=== PATIENT | female | born 1950 | race Caucasian/White ===

== ENCOUNTER 2019-06-01 09:54 | Outpatient (RCR) | payer MEDICARE, MEDICAID, SELFPAY ==
[2019-06-02 06:43] LABS: Add Urine Microscopic? YES; Appearance Urine Clear (Clear); Bacteria Urine 4+ /hpf; Bilirubin Urine Negative (Negative); Blood Urine Negative (Negative); Calcium Oxalate Crystals Urine Present /hpf; Color Urine Yellow (Yellow); Glucose Urine UA Negative (Negative); Ketones Urine Negative (Negative); Leukocyte Esterase Ur 1+ LEU/UL (NEGATIVE); Mucus Urine Few /lpf; Nitrate Urine Positive (Negative); Protein Urine Negative (Negative); Specific Grav Ur 1.024 (1.001-1.035); Squamous Epithelial Cell Urine Moderate /hpf (Few); WBC Urine 31-50 /hpf (0-3)
[2019-06-02 07:56] LABS: Folic Acid 8.9 ng/mL (2.76->20)
== END 2019-08-30 23:59 | disposition home or self-care (01) ==
LOC: CAMBRIDGE 09:54
PROVIDERS: Visit Provider Nurse Practitioner Family
DX: I63.9 Cerebral infarction, unspecified (principal); I49.9 Cardiac arrhythmia, unspecified; I10 Essential (primary) hypertension; E87.6 Hypokalemia; E78.2 Mixed hyperlipidemia; H91.93 Unspecified hearing loss, bilateral; R73.9 Hyperglycemia, unspecified; F33.1 Major depressive disorder, recurrent, moderate
CPT/HCPCS: 36415; 81001; 82607; 82746; 87077; 87086; 87088; 87186

== ENCOUNTER 2020-11-09 14:41 | Emergency (ER) | payer MEDICARE, MEDICAID, SELFPAY ==
[2020-11-09 15:11] VITALS: BP 127/72; PULSE 65; RESP 18; TEMP 36.1; O2SAT 98
--- NOTE | 2020-11-09 15:14 | ECG_ITS ---
Measurements Intervals [place] Rate: 63 P: 42 [place]: 158 QRS: 13 QRSD: 80 T: 65 QT: 393 QTc: 403 Interpretive Statements SINUS RHYTHM POSSIBLE LEFT ATRIAL ENLARGEMENT LOW QRS VOLTAGE IN PRECORDIAL LEADS BORDERLINE T WAVE ABNORMALITY- ANTEROLATERAL LEADS BASELINE ARTIFACT- I, III, AVR, AVL, AVF BORDERLINE ECG Electronically Signed On 11-09-2020 15:51:09 CDT by Mannie Berman D.O.
[2020-11-09 15:30] LABS: Basophils Absolute Auto 0.1 K/mm3 (0.0-0.1); Basophils Percent Auto 0.5 % (0.2-1.2); Eosinophils Absolute Auto 0.4 K/mm3 (0-0.3); Eosinophils Percent Auto 2.9 % (0-4.4); Hematocrit 43.8 % (37.0-47.0); Hemoglobin 13.7 g/dL (12.0-15.0); Immature Granulocyte Absolute 0.08 K/mm3 (0.00-0.031); Immature Granulocyte Percent A 0.6 % (0-0.5); Lymphocytes Absolute Auto 1.52 K/mm3 (0.9-3.2); Lymphocytes Percent Auto 12.1 % (18.3-44.2); Mean Corpuscular HGB Conc 31.3 g/dl (32-36); Mean Corpuscular Hemoglobin 29.6 pg (26-34); Mean Corpuscular Volume 94.6 fl (80-100); Mean Platelet Volume 10.5 fl (7.4-10.4); Monocytes Absolute Auto 0.8 K/mm3 (0.1-0.6); Monocytes Percent Auto 6.5 % (2.6-8.5); Neutrophils Absolute Auto 9.8 K/mm3 (1.3-6.7); Neutrophils Percent Auto 77.4 % (45.5-73.1); Platelet Count Result 326 k/mm3 (150-375); Red Blood Count 4.63 M/mm3 (4.2-5.4); Red Cell Distribution Width 15.4 % (11.5-14.5); White Blood Count 12.6 K/mm3 (4.5-10.0)
[2020-11-09 15:40] LABS: Anion Gap 5 mmol/L (8-16); Blood Urea Nitrogen 16 mg/dL (7-17); Calcium 9.6 mg/dL (8.4-10.2); Carbon Dioxide 35 mmol/L (22-30); Chloride 101 mmol/L (98-107); Estimated Glomerular Filt Rate 55; Glucose 142 mg/dL (65-110); Potassium 3.7 mmol/L (3.4-5.0); Sodium 141 mmol/L (137-145)
[2020-11-09 15:42] LABS: INR 1.4; Prothrombin Time 16.5 Seconds (11.1-14.7)
[2020-11-09 15:43] LABS: Partial Thromboplastin Time 35.4 SECONDS (22.3-36.8)
[2020-11-09 15:51] LABS: NT Pro B Type Natriuretic Pept 138 pg/mL (5-100); Troponin I < 0.012 ng/mL (0.000-0.034)
--- NOTE | 2020-11-09 17:36 | ED.GENADULT ---
HPI - General Adult General Chief complaint: Extremity Problem,Nontraumatic Stated complaint: pedal edema Time Seen by Provider: 11/09/20 17:32 Related Data Home Medications Medication Instructions Recorded Confirmed amitriptyline 11/09/20 apixaban [Eliquis] mg 11/09/20 citalopram mg 11/09/20 duloxetine mg PO 11/09/20 empagliflozin [Jardiance] mg 11/09/20 hydrochlorothiazide 11/09/20 metoprolol tartrate 11/09/20 11/09/20 Allergies Allergy/AdvReac Type Severity Reaction Status Date / Time No Known Allergies Allergy Unverified 02/02/20 11:40 [facility] Social History Social History (System 02/02/20 @ 11:40 by Sherri Nobles) Gender identity (if verbalized by the patient): Female Course Vital Signs Vital signs: Vital Signs Temperature 36.1 C L 11/09/20 15:11 Pulse Rate 65 11/09/20 15:11 Respiratory Rate 18 11/09/20 15:11 Blood Pressure 127/72 11/09/20 15:11 Pulse Oximetry 98 11/09/20 15:11 Temperature 36.1 C L 11/09/20 15:11 Pulse Rate 65 11/09/20 15:11 Respiratory Rate 18 11/09/20 15:11 Blood Pressure 127/72 11/09/20 15:11 Pulse Oximetry 98 11/09/20 15:11 Medical Decision Making Vital Signs Vital Signs: Vital Signs Temperature 36.1 C L 11/09/20 15:11 Pulse Rate 65 11/09/20 15:11 Respiratory Rate 18 11/09/20 15:11 Blood Pressure 127/72 11/09/20 15:11 Pulse Oximetry 98 11/09/20 15:11 Temperature 36.1 C L 11/09/20 15:11 Pulse Rate 65 11/09/20 15:11 Respiratory Rate 18 11/09/20 15:11 Blood Pressure 127/72 11/09/20 15:11 Pulse Oximetry 98 11/09/20 15:11 Lab Data Result diagrams: 11/09/20 15:18 11/09/20 15:18 Labs: Lab Results 11/09/20 11/09/20 11/09/20 Range/Units 15:18 15:18 15:18 WBC 12.6 H (4.5-10.0) K/mm3 RBC 4.63 (4.2-5.4) M/mm3 Hgb 13.7 (12.0-15.0) g/dL Hct 43.8 (37.0-47.0) % MCV 94.6 (80-100) fl MCH 29.6 (26-34) pg MCHC 31.3 L (32-36) g/dl RDW 15.4 H (11.5-14.5) % Plt Count 326 (150-375) k/mm3 MPV 10.5 H (7.4-10.4) fl Immature Gran % (Auto) 0.6 H (0-0.5) % Neut % (Auto) 77.4 H (45.5-73.1) % Lymph % (Auto) 12.1 L (18.3-44.2) % [place] % (Auto) 6.5 (2.6-8.5) % Eos % (Auto) 2.9 (0-4.4) % Baso % (Auto) 0.5 (0.2-1.2) % Lymph # (Auto) 1.52 (0.9-3.2) K/mm3 [place] # (Auto) 0.8 H (0.1-0.6) K/mm3 Eos # (Auto) 0.4 H (0-0.3) K/mm3 Baso # (Auto) 0.1 (0.0-0.1) K/mm3 Abs Immat Gran (auto) 0.08 H (0.00-0.031) K/mm3 Absolute Neuts (auto) 9.8 H (1.3-6.7) K/mm3 Absolute Nucleated RBC 0.0 (0.0-0.012) K/mm3 Nucleated RBC % 0.0 (0.0-0.2) % PT 16.5 H (11.1-14.7) Seconds INR 1.4 APTT 35.4 (22.3-36.8) SECONDS Sodium 141 (137-145) mmol/L Potassium 3.7 (3.4-5.0) mmol/L Chloride 101 (98-107) mmol/L Carbon Dioxide 35 H (22-30) mmol/L Anion Gap 5 L (8-16) mmol/L BUN 16 (7-17) mg/dL Creatinine 1.00 (0.7-1.0) mg/dL Estim Creat Clear Calc Not Reportable Estimated GFR 55 L (59 - ) Glucose 142 H (65-110) mg/dL Calcium 9.6 (8.4-10.2) mg/dL Troponin I < 0.012 (0.000-0.034) ng/mL NT-Pro-B Natriuret Pep 138 H (5-100) pg/mL ABG Data ABG results: 11/09/20 11/09/20 11/09/20 15:18 15:18 15:18 WBC 12.6 H RBC 4.63 Hgb 13.7 Hct 43.8 MCV 94.6 MCH 29.6 MCHC 31.3 L RDW 15.4 H Plt Count 326 MPV 10.5 H Immature Gran % (Auto) 0.6 H Neut % (Auto) 77.4 H Lymph % (Auto) 12.1 L [place] % (Auto) 6.5 Eos % (Auto) 2.9 Baso % (Auto) 0.5 Lymph # (Auto) 1.52 [place] # (Auto) 0.8 H Eos # (Auto) 0.4 H Baso # (Auto) 0.1 Abs Immat Gran (auto) 0.08 H Absolute Neuts (auto) 9.8 H Absolute Nucleated RBC 0.0 Nucleated RBC % 0.0 PT 16.5 H INR 1.4 APTT 35.4 Sodium 141 Potassium 3.7 Chloride 101 Carbon Dioxide 35 H Anion Gap 5 L
[2020-11-09] MEDS: FUROSEMIDE 40 MG TABLET PO (19:18)
[2020-11-09 20:00] VITALS: BP 132/84; PULSE 89; RESP 16; O2SAT 96
== END 2020-11-09 20:01 | disposition home or self-care (01) ==
PROVIDERS: Emergency Medicine; Emergency Provider Emergency Medicine; PCP Nurse Practitioner Family
DX: R60.0 Localized edema (principal); R94.31 Abnormal electrocardiogram [ECG] [EKG]
CPT/HCPCS: 36415; 80048; 83880; 84484; 85025; 85610; 85730; 93005; 99284; A9270

== ENCOUNTER 2021-08-07 09:42 | Outpatient (CLI) | payer MEDICARE, MEDICAID, SELFPAY ==
[2021-08-07 10:21] LABS: Appearance Urine Clear (Clear); Bilirubin Urine Negative (Negative); Blood Urine Negative (Negative); Color Urine Yellow (Yellow); Glucose Urine UA 3+ mg/dL (Negative); Ketones Urine Negative (Negative); Leukocyte Esterase Ur Negative LEU/UL (Negative); Nitrate Urine Negative (Negative); Protein Urine Negative (Negative)
[2021-08-07 10:24] LABS: Bacteria Urine 3+ /hpf; Mucus Urine Rare /lpf; Squamous Epithelial Cell Urine Occasional /hpf (Few)
[2021-08-07 10:31] LABS: Add Urine Microscopic? YES
[2021-08-07 10:49] LABS: Alanine Aminotransferase 32 U/L (6-35); Alkaline Phosphatase 126 U/L (38-126); Anion Gap 10 mmol/L (8-16); Aspartate Amino Transferase 32 U/L (14-36); Bilirubin,Total 0.5 mg/dL (0.2-1.3); Blood Urea Nitrogen 30 mg/dL (7-17); Carbon Dioxide 31 mmol/L (22-30); Chloride 100 mmol/L (98-107); Estimated Glomerular Filt Rate 44; Glucose 131 mg/dL (65-110); Potassium 2.8 mmol/L (3.4-5.0); Sodium 141 mmol/L (137-145)
== END 2021-08-07 09:43 | disposition home or self-care (01) ==
LOC: ANHLAB 09:47
PROVIDERS: PCP Nurse Practitioner Family; Visit Provider Nurse Practitioner Family
DX: N39.0 Urinary tract infection, site not specified (principal); E87.6 Hypokalemia
CPT/HCPCS: 36415; 80053; 81001; 87077; 87086; 87186

== ENCOUNTER 2021-08-14 09:58 | Outpatient (CLI) | payer MEDICARE, MEDICAID, SELFPAY ==
[2021-08-14 10:48] LABS: Appearance Urine Slightly Cloudy (Clear); Bilirubin Urine Negative (Negative); Blood Urine Negative (Negative); Color Urine Yellow (Yellow); Glucose Urine UA 2+ mg/dL (Negative); Ketones Urine Negative (Negative); Leukocyte Esterase Ur Trace LEU/UL (Negative); Nitrate Urine Positive (Negative); Protein Urine Negative (Negative); pH Urine 6.5 (5.0-9.0)
[2021-08-14 10:59] LABS: Bacteria Urine 4+ /hpf; Budding Yeast Urine Present /hpf; Mucus Urine Rare /lpf; Squamous Epithelial Cell Urine Many /hpf (Few); WBC Urine 51-75 /hpf
[2021-08-14 11:00] LABS: Add Urine Microscopic? YES
[2021-08-14 11:28] LABS: Alanine Aminotransferase 31 U/L (6-35); Albumin Level 4.2 g/dL (3.5-5.1); Alkaline Phosphatase 109 U/L (38-126); Anion Gap 7 mmol/L (8-16); Aspartate Amino Transferase 37 U/L (14-36); Bilirubin,Total 0.8 mg/dL (0.2-1.3); Blood Urea Nitrogen 20 mg/dL (7-17); Calcium 9.2 mg/dL (8.4-10.2); Carbon Dioxide 32 mmol/L (22-30); Chloride 100 mmol/L (98-107); Estimated Glomerular Filt Rate 55; Glucose 138 mg/dL (65-110); Potassium 3.5 mmol/L (3.4-5.0); Sodium 139 mmol/L (137-145)
== END 2021-08-14 09:59 | disposition home or self-care (01) ==
LOC: ANHLAB 10:07
PROVIDERS: PCP Nurse Practitioner Family; Visit Provider Nurse Practitioner Family
DX: E87.6 Hypokalemia (principal); N39.0 Urinary tract infection, site not specified
CPT/HCPCS: 36415; 80053; 81001; 87077; 87086; 87186

== ENCOUNTER 2022-06-04 14:07 | Outpatient (CLI) | payer MEDICARE, MEDICAID, SELFPAY ==
--- NOTE | ~2022-06-04 | US_ITS ---
EXAMINATION: US art doppler w press LE BI DATE: 06/04/2022 15:26 INDICATION: Intermittent claudication TECHNIQUE: Segmental pressures and plethysmographic and Doppler waveforms of the brachial and lower e xtremity arteries were obtained. COMPARISON: None. FINDINGS: Right and left brachial artery pressures of 96 mm Hg and 87 mm Hg, respectively, are concordant (norm al difference <= 30 mmHg). The left high thigh pressure index is 1.59 (normal > 1.2). The right high thigh pressure index was unable to be obtained due to inability to occlude the vessels at the high ri ght thigh. Intermittent cardiac arrhythmia is present. The right ankle-brachial index (MONIKA) is 1.23 (normal >= 0.9-1). The right great toe-brachial index (T BI) is 0.72 (normal >= 0.6-0.8). The right lower extremity segmental pressure gradients are normal (n ormal gradients <= 20-30 mmHg between adjacent levels on the same leg or the same levels on the two l egs). Arterial waveforms are triphasic at the right common femoral and superficial femoral arteries a nd biphasic in the right popliteal, posterior tibial and dorsalis pedis arteries with brisk systolic upstrokes throughout. The left MONIKA is 1.20 based only upon the pressure in the left posterior tibial artery with no discern ible pulse at the left dorsalis pedis artery. The left TBI is 1.47. The left lower extremity segmenta l pressure gradients are also mildly increased between the left [id number] popliteal artery and t he left posterior tibial artery. Arterial waveforms are triphasic at the left common femoral and supe rficial femoral arteries and biphasic in the left popliteal and posterior tibial arteries with persis tent upstrokes throughout. IMPRESSION: 1. No discernible flow at the left dorsalis pedis artery which may be occluded. Otherwise no signific ant arterial occlusive disease to either lower limb with normal MONIKA's and TBI's bilaterally. 2. Cardiac arrhythmia. Correlate with EKG. Reviewed, dictated and finalized at location A. [facility] IMPRESSION: 1. No discernible flow at the left dorsalis pedis artery which may be occluded. Otherwise no significant arterial occlusive disease to either lower limb with normal MONIKA's and TBI's bilaterally. 2. Cardiac arrhythmia. Correlate with EKG.
== END 2022-06-04 14:08 | disposition home or self-care (01) ==
PROVIDERS: PCP Nurse Practitioner Family; Visit Provider Registered Nurse
DX: I73.9 Peripheral vascular disease, unspecified (principal)
CPT/HCPCS: 93923

== ENCOUNTER 2022-07-27 18:47 | Emergency (ER) | payer MEDICARE, MEDICAID, SELFPAY ==
[2022-07-27 18:51] VITALS: BP 118/65; PULSE 69; RESP 14; TEMP 36.6; O2SAT 96
--- NOTE | 2022-07-27 19:37 | ED.SKABFB ---
HPI - Skin/Abscess/Foreign Bdy General Chief complaint: Skin/Abscess/Foreign Body Stated complaint: rash Time Seen by Provider: 07/27/22 19:10 History of Present Illness HPI narrative: Patient is a 71-year-old female with a history of diabetes, hypertension presenting with a rash. Patient states that she has had a painful rash underneath both of her breasts and underneath her abdominal pannus. States that she resides at [facility] and her nurse has taken away all of her creams and powders. States that the rash has continued and is now very painful. She is asking for antifungal cream. She denies any other complaints or lesions. No systemic symptoms. Related Data Home Medications Medication Instructions Recorded Confirmed amitriptyline 10 mg tablet 11/09/20 apixaban 5 mg tablet (Eliquis) mg 11/09/20 citalopram 40 mg tablet mg 11/09/20 duloxetine 20 mg capsule,delayed mg PO 11/09/20 release empagliflozin 25 mg tablet mg 11/09/20 (Jardiance) hydrochlorothiazide 25 mg tablet 11/09/20 metoprolol tartrate 50 mg tablet 11/09/20 11/09/20 Allergies Allergy/AdvReac Type Severity Reaction Status Date / Time No Known Allergies Allergy Unverified 02/02/20 11:40 Review of Systems Review of Systems: All systems reviewed & are unremarkable except as noted in HPI and below PMFSH Social History Social History Gender identity (if verbalized by the patient): Female Exam Narrative: GENERAL: Well-appearing, well-nourished, and in no acute distress. HEAD: Normocephalic, atraumatic. EYES: PERRLA and EOMI. ENT: Nares clear, no rhinorrhea or epistaxis. Mucous membranes moist. NECK: Supple. CHEST: No respiratory distress. HEART: Regular rate and rhythm ABDOMEN: nondistended, soft EXTREMITIES: Normal range of motion. No edema. SKIN: Warm, dry. erythematous moist rash under bilateral breasts and under abdominal pannus, c/w ivette intertrigo NEURO: No focal deficits. Alert and oriented x3. PSYCH: Normal mood and affect. Course Vital Signs Vital signs: Vital Signs Temperature 97.8 F 07/27/22 18:51 Pulse Rate 69 07/27/22 18:51 Respiratory Rate 14 07/27/22 18:51 Blood Pressure 118/65 07/27/22 18:51 Pulse Oximetry 96 07/27/22 18:51 Oxygen Delivery Room Air 07/27/22 18:51 Temperature 97.8 F 07/27/22 18:51 Pulse Rate 69 07/27/22 18:51 Respiratory Rate 14 07/27/22 18:51 Blood Pressure 118/65 07/27/22 18:51 Pulse Oximetry 96 07/27/22 18:51 Oxygen Delivery Room Air 07/27/22 18:51 MDM - Skin/Abscess/Foreign Bdy MDM Narrative Medical decision making narrative: Patient is a 71-year-old female presenting with intertriginous rashes. Vitals within normal limits. Patient is well-appearing and in no acute distress. Exam is remarkable for the above. Consistent with Ivette intertrigo. We will start her on antifungal cream. Advise close PCP follow-up. Appropriate return precautions given. Patient voiced understanding and is agreeable with plan. Discharged in stable condition. Differential Diagnosis Differential diagnosis: Likely urticaria, cellulitis, eczema, contact dermatitis and other (ivette intertrigo) Critical Care Time Critical Care Time Critical Care Time: No Discharge Plan Discharge Clinical Impression: Candidal intertrigo Patient Disposition: NH Residential/Asst Living Condition: Stable Instructions: Antibiotic Form, Skin Yeast Infection (ED) Additional Instructions: Please apply the antifungal cream twice daily for two weeks. Please follow-up closely with your PCP. If your symptoms worsen, you develop fevers, vomiting, or other concerning symptoms arise, please return to the ER. Prescriptions: New ketoconazole 2 % cream 1 applic topical BID Qty: 60 0RF Rx Instructions: apply twice daily to affected areas for 2 weeks No Action citalopram 40 mg tablet
== END 2022-07-27 20:10 ==
PROVIDERS: Emergency Provider Emergency Medicine; PCP Nurse Practitioner Family
DX: L30.4 Erythema intertrigo (principal); B37.2 Candidiasis of skin and nail; E11.9 Type 2 diabetes mellitus without complications; I10 Essential (primary) hypertension; Z79.84 Long term (current) use of oral hypoglycemic drugs; Z79.01 Long term (current) use of anticoagulants
CPT/HCPCS: 99283

== ENCOUNTER 2023-11-09 16:45 | Emergency (ER) | payer MEDICARE, MEDICAID, SELFPAY ==
[2023-11-09 16:46] VITALS: BP 127/80; PULSE 71; RESP 16; TEMP 36.4; O2SAT 99
--- NOTE | 2023-11-09 17:31 | PC.NURSE ---
This RN was approached by another pt in the waiting room stating this pt was in the bathroom with blood running down her leg. When this RN approached the bathroom, I found the pt standing with a quater sized skin tear to the L skin. Bleeding was controlled upon this RN arriving to the bathroom. Pt had some dried blood running down to her ankle. This RN wheeled pt into triage and cleaned the wound with sterile water and gauze. This RN then placed a bandaid over the skin tear.
[2023-11-09] MEDS: ACETAMINOPHEN 500 MG TABLET 1000 MG PO (20:00)
[2023-11-09 20:03] VITALS: BP 128/70; PULSE 62; RESP 17; O2SAT 97
--- NOTE | 2023-11-10 01:34 | ED.UPPEXIN ---
HPI - Extremity Injury (Upper) General Chief Complaint: Extremity Injury, Upper Stated Complaint: arm swelling Time Seen by Provider: 11/09/23 19:20 History of Present Illness HPI narrative: The patient is on a blood thinner, she noticed 2-3 days ago that she had a large bruise to her left arm. Cannot recall any recent injury, she is able to move her arm without issues, she has been using ice on her arm. Denies any pain. Related Data Home Medications Medication Instructions Recorded Confirmed amitriptyline 10 mg tablet 11/09/20 apixaban 5 mg tablet (Eliquis) mg 11/09/20 citalopram 40 mg tablet mg 11/09/20 duloxetine 20 mg capsule,delayed mg PO 11/09/20 release empagliflozin 25 mg tablet mg 11/09/20 (Jardiance) hydrochlorothiazide 25 mg tablet 11/09/20 metoprolol tartrate 50 mg tablet 11/09/20 11/09/20 Allergies Allergy/AdvReac Type Severity Reaction Status Date / Time No Known Allergies Allergy Unverified 02/02/20 11:40 Review of Systems Review of Systems: All systems reviewed & are unremarkable except as noted in HPI and below PMFSH Social History Social History Gender identity (if verbalized by the patient): Female Exam Narrative: EXAMINATION OF ORGAN SYSTEMS/BODY AREAS: Constitutional: Vital signs per nursing GENERAL:[No acute distress, non-toxic appearing.] HEAD: Normal with no signs of head trauma. EYES: EOMI, conjunctiva normal ENT: Hearing grossly intact LUNGS: Nonlabored breathing. HEART: [Regular rate and rhythm] ABD: [Soft], [nontender to palpation] EXT: Normal range of motion. Extensive bruising around the left humerus in the shape and size of a blood pressure cuff SKIN: Bruising as above NEURO: [Alert and oriented x 3. No gross focal sensory or strength deficits.] PSYCH: Normal affect Course Vital Signs Vital signs: Vital Signs Temperature 97.6 F 11/09/23 16:46 Pulse Rate 71 11/09/23 16:46 Respiratory Rate 16 11/09/23 16:46 Blood Pressure 127/80 11/09/23 16:46 Pulse Oximetry 99 11/09/23 16:46 Temperature 97.6 F 11/09/23 16:46 Pulse Rate 62 11/09/23 20:03 Respiratory Rate 17 11/09/23 20:03 Blood Pressure 128/70 11/09/23 20:03 Pulse Oximetry 97 11/09/23 20:03 MDM - Extremity Injury (Upper) MDM Narrative Medical decision making narrative: Patient presents here with 2-3 days of atraumatic bruising to her left upper arm, she has normal range of motion, she is already on a blood thinner so have very low concern for DVT, there is no significant hematoma collection, the bruise appears suspiciously like he may have been caused by a blood pressure cuff based on the size and shape and position of it, patient thinks that it may have gone warmer than usual over last day so I will tentatively give antibiotics for prophylaxis to prevent he infection of hematoma, and have her follow up with primary care doctor. Return precautions provided. Patient agreeable to this plan. Discharge Plan Discharge Clinical Impression: Hematoma Patient Disposition: Home, Self-Care Condition: Stable Instructions: Antibiotic Form, Hematoma (ED) Additional Instructions: Please follow up with your doctor in the next 2-3 days. Use ice on it the next few days. Try to avoid taking blood pressures on that arm. You can always return to the ER for any further issues. Prescriptions: New cephalexin 500 mg capsule 500 mg PO Q12H 5 Days Qty: 10 0RF No Action ketoconazole 2 % cream 1 applic topical BID Qty: 60 0RF Rx Instructions: apply twice daily to affected areas for 2 weeks citalopram 40 mg tablet amitriptyline 10 mg tablet metoprolol tartrate 50 mg tablet hydrochlorothiazide 25 mg tablet duloxetine 20 mg capsule,delayed release(DR/EC) PO Eliquis 5 mg tablet Jardiance 25 mg tablet
== END 2023-11-09 21:06 | disposition home or self-care (01) ==
PROVIDERS: Emergency Provider Emergency Medicine; PCP Nurse Practitioner Family
DX: M79.81 Nontraumatic hematoma of soft tissue (principal); Z79.01 Long term (current) use of anticoagulants; Z79.84 Long term (current) use of oral hypoglycemic drugs; Z79.899 Other long term (current) drug therapy
CPT/HCPCS: 99283; A9270

== ENCOUNTER 2025-01-15 18:18 | Inpatient (IN) | payer MEDICARE, MEDICAID, SELFPAY ==
[2025-01-15] VITALS (31 sets, daily range): BP systolic 82–113; BP diastolic 57–82; PULSE 96–146; RESP 15–25; TEMP 36.4; O2SAT 91–98
--- NOTE | ~2025-01-15 | CT_ITS ---
EXAMINATION: CT brain wo con DATE: 01/15/2025 20:10 INDICATION: Fall. Weakness. TECHNIQUE: Computed tomography (CT) of the head was performed without intravenous contrast. The mA was adjusted according to patient size. Iterative reconstruction technique was employed. The dose-length product was 605.33 mGy-cm. COMPARISON: Head CT 02/24/2018 FINDINGS: There is an old infarct in right cerebellum. There is an old infarct involving left temporal parietal region and left insula. There is an old infarct involving right frontal parietal region and the right basal ganglia and right insula. There are scattered areas of low attenuation in the cerebral white matter. There is no intracranial hemorrhage, acute infarction, or abnormal intracranial mass lesion. There is ex vacuo dilatation of right lateral ventricle. The paranasal sinuses are clear. There are likely changes of ocular lens replacement surgeries. The mastoid air cells are normal. IMPRESSION: 1. Multiple old infarcts in the brain. 2. Worsened extensive nonspecific cerebral white matter disease, which likely represents chronic small vessel ischemic disease. Reviewed, dictated and finalized at location E. IMPRESSION: 1. Multiple old infarcts in the brain. 2. Worsened extensive nonspecific cerebral white matter disease, which likely r epresents chronic small vessel ischemic disease.
--- NOTE | ~2025-01-15 | XR_ITS ---
Examination: XR pelvis 1-2V Clinical History: fall Comparison: None Technique: AP pelvis Findings/impression: 1. No pelvic fracture identified. However given patient age, osteopenia, and overlying soft tissue artifact, consider a low threshold for cross-sectional imaging if clinical suspicion persists. Reviewed, dictated and finalized at location R.
--- NOTE | ~2025-01-15 | CT_ITS ---
EXAMINATION: CT cervical spine wo con DATE: 01/15/2025 20:10 INDICATION: Fall. TECHNIQUE: Computed tomography (CT) of the cervical spine was performed without intravenous contrast. Automated exposure control and iterative reconstruction technique were employed. The dose-length product was 366.89 mGy-cm. COMPARISON: None FINDINGS: There is an 8 mm nodule in right thyroid lobe, likely not clinically significant. There is 5 degrees levocurvature of cervical spine. Vertebral body heights are normal. There is mildly decreased disc height at C6-C7. There is multilevel facet joint osteoarthritis, severe bilaterally at T1. There is multilevel mild neural foraminal stenosis. There is mild central canal stenosis at C2-C3, C3-C4, C4-C5, C5-C6, and C6-C7. IMPRESSION: 1. No fracture. 2. Mild cervical spondylosis. Reviewed, dictated and finalized at location E.
--- NOTE | ~2025-01-15 | XR_ITS ---
EXAMINATION: XR shoulder LT min 2V, 01/15/2025 18:55 CDT HISTORY: Fall COMPARISON: No comparisons available. Findings: No acute fracture or malalignment. Severe degenerative changes Soft tissues unremarkable. Impression: No acute fracture or malalignment. Reviewed, dictated and finalized at location P. Impression: No acute fracture or malalignment.
--- NOTE | ~2025-01-15 | XR_ITS ---
EXAMINATION: XR humerus LT, 01/15/2025 18:55 CDT HISTORY: Fall COMPARISON: No comparisons available. Findings: No acute fracture or malalignment. Severe degenerative changes Soft tissues unremarkable. Impression: No acute fracture or malalignment. Reviewed, dictated and finalized at location P. Impression: No acute fracture or malalignment.
--- NOTE | ~2025-01-15 | XR_ITS ---
Examination: XR chest 2V Clinical History: weakness Comparison: None Technique: PA and Lateral Findings: Cardiomediastinal silhouette normal size and configuration. Lungs clear. No acute bony abnormality. Osteopenia. IMPRESSION: 1. No acute cardiopulmonary findings. Reviewed, dictated and finalized at location R.
--- NOTE | 2025-01-15 19:24 | ECG_ITS ---
Test Date: 2025-01-15 19:37:26 Measurements Intervals [place] Rate: 123 P: 0 [place]: 0 QRS: 21 QRSD: 80 T: 105 QT: 334 QTc: 479 Interpretive Statements ATRIAL FIBRILLATION WITH RAPID VENTRICULAR RESPONSE NONSPECIFIC ST & T-WAVE ABNORMALITY- DIFFUSE LEADS BASELINE ARTIFACT- I, II, III, AVR, AVL ,AVF, V1-V6 ABNORMAL ECG No previous ECG available for comparison Electronically Signed On 01-16-2025 08:27:52 CDT by Mannie Berman D.O.
--- NOTE | 2025-01-15 19:36 | ED.UPPEXIN ---
HPI - Extremity Injury (Upper) General Chief Complaint: Extremity Injury, Upper <Kayla Saba PA-C - Last Filed: 01/16/25 00:27> Stated Complaint: weakness, left shoulder pain after fall on Wed <Kayla Saba PA-C - Last Filed: 01/16/25 00:27> Time Seen by Provider: 01/15/25 19:24 <Kayla Saba PA-C - Last Filed: 01/16/25 00:27> Source: patient and EMS <Kayla Saba PA-C - Last Filed: 01/16/25 00:27> Mode of arrival: EMS <Kayla Saba PA-C - Last Filed: 01/16/25 00:27> Limitations: other (poor historian) <Kayla Saba PA-C - Last Filed: 01/16/25 00:27> History of Present Illness HPI narrative: This is a 74-year-old female that presents emergency department for left shoulder pain. Reports she tripped and fall couple of days prior. Lying left shoulder. Reports decreased range of motion and pain in the shoulder. Also reports feeling generally weak. Denies chest pain, shortness of breath. <Kayla Saba PA-C - Last Filed: 01/16/25 00:27> Related Data Home Medications: Home Medications ?Medication ?Instructions ?Recorded ?Confirmed ?Last Taken ?Type amitriptyline 10 mg tablet 25 mg PO BID 11/09/20 01/16/25 Unknown History apixaban 5 mg tablet (Eliquis) 5 mg PO DAILY 11/09/20 01/16/25 Unknown History citalopram 40 mg tablet 40 mg PO DAILY 11/09/20 01/16/25 Unknown History duloxetine 20 mg capsule,delayed 20 mg PO DAILY 11/09/20 01/16/25 Unknown History release empagliflozin 25 mg tablet 25 mg PO DAILY 11/09/20 01/16/25 Unknown History (Jardiance) hydrochlorothiazide 25 mg tablet 50 mg PO DAILY 11/09/20 01/16/25 Unknown History metoprolol tartrate 50 mg tablet 50 mg PO DAILY 11/09/20 01/16/25 Unknown History atorvastatin 40 mg tablet 40 mg PO DAILY 01/16/25 01/16/25 Unknown History ibuprofen 600 mg tablet 600 mg PO Q8H PRN fever or pain 01/16/25 01/16/25 Unknown History <Kayla Saba PA-C - Last Filed: 01/16/25 00:27> Allergies/Adverse Reactions: Allergies Allergy/AdvReac Type Severity Reaction Status Date / Time No Known Allergies Allergy Verified 01/16/25 01:57 <Kayla Saba PA-C - Last Filed: 01/16/25 00:27> Review of Systems Review of Systems: All systems reviewed & are unremarkable except as noted in HPI and below <Kayla Saba PA-C - Last Filed: 01/16/25 00:27> PMFSH Past Medical History Medical History: Medical History (Updated 01/16/25 @ 00:40 by Vanessa Berrios MD) Hypertension History of diabetes mellitus <DESIREE Terry Last Filed: 01/16/25 00:27> Family History Family History: Family History (Updated 01/16/25 @ 01:42 by Lorie Dorsey RN) Father Acute myocardial infarction <DESIREE Terry Last Filed: 01/16/25 00:27> Social History Social History: Social History Years smoked: 50 Smoking status: Current every day smoker Tobacco type: cigarettes Second hand tobacco smoke exposure: Yes Alcohol intake: never Substance use: never Lack of Transportation: No Lack of Food: Never True Current Housing: I Have Housing Concerned About Future Housing: No Difficulty Paying Gas/Electric Bills: No Difficulty Paying for Meds: No Currently Unemployed: No Education: High School Diploma/GED Difficulty w/ Childcare or Family Care: No Gender identity (if verbalized by the patient): Female Spiritual care concerns: No <DESIREE Terry Last Filed: 01/16/25 00:27> Exam Narrative: GENERAL: Well-appearing, well-nourished, and in no acute distress. HEAD: Normocephalic, atraumatic. EYES: PERRLA and EOMI. ENT: Nares clear, no rhinorrhea or epistaxis. Mucous membranes moist. Oropharynx without tonsillar hypertrophy exudate or other lesions. Bilateral TMs pearly melara non-bulging NECK: Supple. No adenopathy or masses. CHEST: Clear to auscultation. No respiratory distress. No wheezes rales or rhonchi HEART: Irregularly irregular. No murmur heard. Normal peripheral pulses. ABDOMEN: Soft, nontender, nondistended, normal active bowel sounds. EXTREMITIES: Normal range of motion. No edema or obvious deformity. SKIN: Warm, dry, no rash. NEURO: No focal deficits. Alert and oriented x3. CN II-XII grossly intact PSYCH: Normal mood and affect <Kayla Saba PA-C - Last Filed: 01/16/25 00:27> Course CLEARING INSPECTOR/PA Physician Supervision I did review the chart agree with the management <Parker Donato MD - Last Filed: 01/16/25 03:18> Consultations Consultation #1: Spoke with Dr. Lopes. Recommends starting Amiodarone <Kayla Saba PA-C - Last Filed: 01/16/25 00:27> Date: 01/15/25 <Kayla Saba PA-C - Last Filed: 01/16/25 00:27> Consultation #2: Spoke with hospitalist about patient and workup who accepts admission <Kayla Saba PA-C - Last Filed: 01/16/25 00:27> Date: 01/15/25 <Kayla Saba PA-C - Last Filed: 01/16/25 00:27> Vital Signs Vital signs: Vital Signs Temperature 36.4 C 01/15/25 18:27 Pulse Rate 106 H 01/15/25 18:27 Respiratory Rate 18 01/15/25 18:27 Blood Pressure 85/69 L 01/15/25 18:27 Pulse Oximetry 98 01/15/25 18:27 Oxygen Delivery Room Air 01/15/25 18:27 Temperature 36.4 C L 01/16/25 02:03 Pulse Rate 98 01/16/25 02:03 Respiratory Rate 25 H 01/16/25 02:03 Blood Pressure 110/70 01/16/25 02:03 Pulse Oximetry 98 01/16/25 02:03 Oxygen Delivery Room Air 01/15/25 18:27 <Kayla Saba PA-C - Last Filed: 01/16/25 00:27> Vital Signs Temperature 36.4 C 01/15/25 18:27 Pulse Rate 106 H 01/15/25 18:27 Respiratory Rate 18 01/15/25 18:27 Blood Pressure 85/69 L 01/15/25 18:27 Pulse Oximetry 98 01/15/25 18:27 Oxygen Delivery Room Air 01/15/25 18:27 Temperature 36.4 C L 01/16/25 02:03 Pulse Rate 98 01/16/25 02:03 Respiratory Rate 25 H 01/16/25 02:03 Blood Pressure 110/70 01/16/25 02:03 Pulse Oximetry 98 01/16/25 02:03 Oxygen Delivery Room Air 01/15/25 18:27 <Parker Donato MD - Last Filed: 01/16/25 03:18> MDM - Extremity Injury (Upper) MDM Narrative Medical decision making narrative: Patient presents to the emergency department after a fall a couple of days prior to arrival with left shoulder pain. Also reporting generalized weakness. Patient noted to be in atrial fibrillation with RVR. Blood pressure soft, but responsive to IV fluids. Given IV and oral metoprolol with some improvement. Rates now in the 110s to 120s. Patient is afebrile. CBC with leukocytosis to 14.1. Kidney function around baseline. Mildly hypokalemic, potassium was replaced. Urine with possible evidence of infection. This was sent for culture. Patient given a dose of Rocephin. CT brain, cervical spine without acute findings. Left humerus and shoulder x-rays without acute osseous abnormalities. Chest x-ray without acute cardiopulmonary abnormality. Patient will be admitted for further management <Kayla Saba PA-C - Last Filed: 01/16/25 00:27> Differential Diagnosis Differential diagnosis: Likely dislocation of shoulder, fracture of humerus and other (UTI, dehydration, electrolyte derangement, kidney injury, pneumonia, atrial fibrillation, atrial flutter) <Kayla Saba PA-C - Last Filed: 01/16/25 00:27> Lab Data Attestation: I reviewed the patient's lab results. <Kayla Saba PA-C - Last Filed: 01/16/25 00:27> Result diagrams: 01/15/25 19:44 01/15/25 20:23 <Kayla Saba PA-C - Last Filed: 01/16/25 00:27> Labs: Lab Results 01/15/25 01/15/25 01/15/25 Range/Units 19:44 20:17 20:23 WBC 14.1 H (4.5-10.0) K/mm3 RBC 5.29 (4.2-5.4) M/mm3 Hgb 13.7 (12.0-15.0) g/dL Hct 44.0 (37.0-47.0) % MCV 83.2 (80-100) fl MCH 25.9 L (26-34) pg MCHC 31.1 L (32-36) g/dl RDW 19.1 H (11.5-14.5) % Plt Count 458 H (150-375) k/mm3 MPV 11.0 H (7.4-10.4) fl Immature Gran % (Auto) 0.4 (0-0.5) % Neut % (Auto) 76.2 H (45.5-73.1) % Lymph % (Auto) 13.6 L (18.3-44.2) % [place] % (Auto) 8.0 (2.6-8.5) % Eos % (Auto) 1.4 (0-4.4) % Baso % (Auto) 0.4 (0.2-1.2) % Lymph # (Auto) 1.92 (0.9-3.2) K/mm3 [place] # (Auto) 1.1 H (0.1-0.6) K/mm3 Eos # (Auto) 0.2 (0-0.3) K/mm3 Baso # (Auto) 0.1 (0.0-0.1) K/mm3 Abs Immat Gran (auto) 0.05 H (0.00-0.031) K/mm3 Absolute Neuts (auto) 10.7 H (1.3-6.7) K/mm3 Absolute Nucleated RBC 0.000 (0.0-0.012) K/mm3 Nucleated RBC % 0.0 (0.0-0.2) % PT Cancelled 18.3 H INR Cancelled 1.6 APTT Cancelled 34.9 D-Dimer Cancelled < 0.27 Sodium 136 L (137-145) mmol/L Potassium 2.9 L (3.4-5.0) mmol/L Chloride 100 (98-107) mmol/L Carbon Dioxide 25 (22-30) mmol/L Anion Gap 11 (4-12) mmol/L BUN 46 H D (7-17) mg/dL Creatinine 1.31 H (0.7-1.0) mg/dL Estim Creat Clear Calc Not Reportable Estimated GFR 40 L (59 - ) Glucose 104 (65-110) mg/dL Calcium 9.3 (8.4-10.2) mg/dL Magnesium 2.5 H (1.6-2.3) mg/dL Total Bilirubin 0.6 (0.2-1.3) mg/dL AST 36 (14-36) U/L ALT 38 H (6-35) U/L Alkaline Phosphatase 106 (38-126) U/L NT-Pro-B Natriuret Pep 2900 H (19.9-100) pg/mL Total Protein 8.3 H (6.3-8.2) g/dL Albumin 4.1 (3.5-5.1) g/dL Urine Color (Yellow) Urine Appearance (Clear) Urine pH (5.0-9.0) Ur Specific [place] (1.001-1.035) Urine Protein (Negative) mg/dL Urine Glucose (UA) (Negative) mg/dL Urine Ketones (Negative) mg/dL Ur Blood (Man) (Negative) Urine Nitrate (Negative) Urine Bilirubin (Negative) Urine Urobilinogen (<2.0) mg/dL Add Ur Microanalysis Leukocyte Esterase Rfl (Negative) WAQAS/UL Urine RBC (0-2) /hpf Urine WBC (0-3) /hpf Ur Squamous Epith Cells (Few) /hpf Urine Bacteria /hpf Urine Casts 01/15/ Range/Units 20:59 WBC (4.5-10.0) K/mm3 RBC (4.2-5.4) M/mm3 Hgb (12.0-15.0) g/dL Hct (37.0-47.0) % MCV (80-100) fl MCH (26-34) pg MCHC (32-36) g/dl RDW (11.5-14.5) % Plt Count (150-375) k/mm3 MPV (7.4-10.4) fl Immature Gran % (Auto) (0-0.5) % Neut % (Auto) (45.5-73.1) % Lymph % (Auto) (18.3-44.2) % [place] % (Auto) (2.6-8.5) % Eos % (Auto) (0-4.4) % Baso % (Auto) (0.2-1.2) % Lymph # (Auto) (0.9-3.2) K/mm3 [place] # (Auto) (0.1-0.6) K/mm3 Eos # (Auto) (0-0.3) K/mm3 Baso # (Auto) (0.0-0.1) K/mm3 Abs Immat Gran (auto) (0.00-0.031) K/mm3 Absolute Neuts (auto) (1.3-6.7) K/mm3 Absolute Nucleated RBC (0.0-0.012) K/mm3 Nucleated RBC % (0.0-0.2) % PT INR APTT D-Dimer Sodium (137-145) mmol/L Potassium (3.4-5.0) mmol/L Chloride (98-107) mmol/L Carbon Dioxide (22-30) mmol/L Anion Gap (4-12) mmol/L BUN (7-17) mg/dL Creatinine (0.7-1.0) mg/dL Estim Creat Clear Calc Estimated GFR (59 - ) Glucose (65-110) mg/dL Calcium (8.4-10.2) mg/dL Magnesium (1.6-2.3) mg/dL Total Bilirubin (0.2-1.3) mg/dL AST (14-36) U/L ALT (6-35) U/L Alkaline Phosphatase (38-126) U/L NT-Pro-B Natriuret Pep (19.9-100) pg/mL Total Protein (6.3-8.2) g/dL Albumin (3.5-5.1) g/dL Urine Color Yellow (Yellow) Urine Appearance Turbid H (Clear) Urine pH 5.5 (5.0-9.0) Ur Specific [place] 1.020 (1.001-1.035) Urine Protein 1+ H (Negative) mg/dL Urine Glucose (UA) Trace H (Negative) mg/dL Urine Ketones Trace H (Negative) mg/dL Ur Blood (Man) Negative (Negative) Urine Nitrate Negative (Negative) Urine Bilirubin Negative (Negative) Urine Urobilinogen 1.0 (<2.0) mg/dL Add Ur Microanalysis Reviewed Leukocyte Esterase Rfl 1+ H (Negative) WAQAS/UL Urine RBC >100 H (0-2) /hpf Urine WBC 6-10 H (0-3) /hpf Ur Squamous Epith Cells Occasional (Few) /hpf Urine Bacteria 4+ /hpf Urine Casts 11-20 <Kayla Saba PA-C - Last Filed: 01/16/25 00:27> Lab Results 01/15/25 01/15/25 01/15/25 Range/Units 19:44 20:17 20:23 WBC 14.1 H (4.5-10.0) K/mm3 RBC 5.29 (4.2-5.4) M/mm3 Hgb 13.7 (12.0-15.0) g/dL Hct 44.0 (37.0-47.0) % MCV 83.2 (80-100) fl MCH 25.9 L (26-34) pg MCHC 31.1 L (32-36) g/dl RDW 19.1 H (11.5-14.5) % Plt Count 458 H (150-375) k/mm3 MPV 11.0 H (7.4-10.4) fl Immature Gran % (Auto) 0.4 (0-0.5) % Neut % (Auto) 76.2 H (45.5-73.1) % Lymph % (Auto) 13.6 L (18.3-44.2) % [place] % (Auto) 8.0 (2.6-8.5) % Eos % (Auto) 1.4 (0-4.4) % Baso % (Auto) 0.4 (0.2-1.2) % Lymph # (Auto) 1.92 (0.9-3.2) K/mm3 [place] # (Auto) 1.1 H (0.1-0.6) K/mm3 Eos # (Auto) 0.2 (0-0.3) K/mm3 Baso # (Auto) 0.1 (0.0-0.1) K/mm3 Abs Immat Gran (auto) 0.05 H (0.00-0.031) K/mm3 Absolute Neuts (auto) 10.7 H (1.3-6.7) K/mm3 Absolute Nucleated RBC 0.000 (0.0-0.012) K/mm3 Nucleated RBC % 0.0 (0.0-0.2) % PT Cancelled 18.3 H INR Cancelled 1.6 APTT Cancelled 34.9 D-Dimer Cancelled < 0.27 Sodium 136 L (137-145) mmol/L Potassium 2.9 L (3.4-5.0) mmol/L Chloride 100 (98-107) mmol/L Carbon Dioxide 25 (22-30) mmol/L Anion Gap 11 (4-12) mmol/L BUN 46 H D (7-17) mg/dL Creatinine 1.31 H (0.7-1.0) mg/dL Estim Creat Clear Calc Not Reportable Estimated GFR 40 L (59 - ) Glucose 104 (65-110) mg/dL Calcium 9.3 (8.4-10.2) mg/dL Magnesium 2.5 H (1.6-2.3) mg/dL Total Bilirubin 0.6 (0.2-1.3) mg/dL AST 36 (14-36) U/L ALT 38 H (6-35) U/L Alkaline Phosphatase 106 (38-126) U/L NT-Pro-B Natriuret Pep 2900 H (19.9-100) pg/mL Total Protein 8.3 H (6.3-8.2) g/dL Albumin 4.1 (3.5-5.1) g/dL Urine Color (Yellow) Urine Appearance (Clear) Urine pH (5.0-9.0) Ur Specific [place] (1.001-1.035) Urine Protein (Negative) mg/dL Urine Glucose (UA) (Negative) mg/dL Urine Ketones (Negative) mg/dL Ur Blood (Man) (Negative) Urine Nitrate (Negative) Urine Bilirubin (Negative) Urine Urobilinogen (<2.0) mg/dL Add Ur Microanalysis Leukocyte Esterase Rfl (Negative) WAQAS/UL Urine RBC (0-2) /hpf Urine WBC (0-3) /hpf Ur Squamous Epith Cells (Few) /hpf Urine Bacteria /hpf Urine Casts 01/15/25 Range/Units 20:59 WBC (4.5-10.0) K/mm3 RBC (4.2-5.4) M/mm3 Hgb (12.0-15.0) g/dL Hct (37.0-47.0) % MCV (80-100) fl MCH (26-34) pg MCHC (32-36) g/dl RDW (11.5-14.5) % Plt Count (150-375) k/mm3 MPV (7.4-10.4) fl Immature Gran % (Auto) (0-0.5) % Neut % (Auto) (45.5-73.1) % Lymph % (Auto) (18.3-44.2) % [place] % (Auto) (2.6-8.5) % Eos % (Auto) (0-4.4) % Baso % (Auto) (0.2-1.2) % Lymph # (Auto) (0.9-3.2) K/mm3 [place] # (Auto) (0.1-0.6) K/mm3 Eos # (Auto) (0-0.3) K/mm3 Baso # (Auto) (0.0-0.1) K/mm3 Abs Immat Gran (auto) (0.00-0.031) K/mm3 Absolute Neuts (auto) (1.3-6.7) K/mm3 Absolute Nucleated RBC (0.0-0.012) K/mm3 Nucleated RBC % (0.0-0.2) % PT INR APTT D-Dimer Sodium (137-145) mmol/L Potassium (3.4-5.0) mmol/L Chloride (98-107) mmol/L Carbon Dioxide (22-30) mmol/L Anion Gap (4-12) mmol/L BUN (7-17) mg/dL Creatinine (0.7-1.0) mg/dL Estim Creat Clear Calc Estimated GFR (59 - ) Glucose (65-110) mg/dL Calcium (8.4-10.2) mg/dL Magnesium (1.6-2.3) mg/dL Total Bilirubin (0.2-1.3) mg/dL AST (14-36) U/L ALT (6-35) U/L Alkaline Phosphatase (38-126) U/L NT-Pro-B Natriuret Pep (19.9-100) pg/mL Total Protein (6.3-8.2) g/dL Albumin (3.5-5.1) g/dL Urine Color Yellow (Yellow) Urine Appearance Turbid H (Clear) Urine pH 5.5 (5.0-9.0) Ur Specific [place] 1.020 (1.001-1.035) Urine Protein 1+ H (Negative) mg/dL Urine Glucose (UA) Trace H (Negative) mg/dL Urine Ketones Trace H (Negative) mg/dL Ur Blood (Man) Negative (Negative) Urine Nitrate Negative (Negative) Urine Bilirubin Negative (Negative) Urine Urobilinogen 1.0 (<2.0) mg/dL Add Ur Microanalysis Reviewed Leukocyte Esterase Rfl 1+ H (Negative) WAQAS/UL Urine RBC >100 H (0-2) /hpf Urine WBC 6-10 H (0-3) /hpf Ur Squamous Epith Cells Occasional (Few) /hpf Urine Bacteria 4+ /hpf Urine Casts 11-20 <Parker Donato MD - Last Filed: 01/16/25 03:18> Imaging Data Radiologist's impression: CT brain: No evidence of acute intracranial abnormality. No ICH, mass effect or edema. No skull fracture. Chronic microvascular ischemic changes. Atrophy. CT cervical spine: No evidence of acute fracture or traumatic subluxation. No high-grade central canal stenosis. Multilevel spondylosis Chest x-ray: No acute cardiopulmonary abnormality. No focal consolidation, pleural effusion or pneumothorax ITS Impressions Humerus X-Ray 01/15/25 19:17 Impression: No acute fracture or malalignment. Shoulder X-Ray 01/15/25 19:17 Impression: No acute fracture or malalignment. <Kayla Saba PA-C - Last Filed: 01/16/25 00:27> Critical Care Time Critical Care Time Critical Care Time: Yes <Kayla Saba PA-C - Last Filed: 01/16/25 00:27> Total Critical Care Time: 35 <Kayla Saba PA-C - Last Filed: 01/16/25 00:27> Discharge Plan Discharge Clinical Impression: Atrial fibrillation with RVR, Pyuria <Kayla Saba PA-C - Last Filed: 01/16/25 00:27> Patient Disposition: Still a Patient <Kayla Saba PA-C - Last Filed: 01/16/25 00:27> Condition: Serious <Kayla Saba PA-C - Last Filed: 01/16/25 00:27>
[2025-01-15 19:53] LABS: Hematocrit 44.0 % (37.0-47.0); Hemoglobin 13.7 g/dL (12.0-15.0); Immature Granulocyte Percent A 0.4 % (0-0.5); Lymphocytes Absolute Auto 1.92 K/mm3 (0.9-3.2); Mean Corpuscular HGB Conc 31.1 g/dl (32-36); Mean Corpuscular Hemoglobin 25.9 pg (26-34); Mean Corpuscular Volume 83.2 fl (80-100); Nucleated Red Blood Cells Absolute Auto 0.000 K/mm3 (0.0-0.012); Nucleated Red Blood Cells Perc 0.0 % (0.0-0.2); Platelet Count Result 458 k/mm3 (150-375); Red Blood Count 5.29 M/mm3 (4.2-5.4); White Blood Count 14.1 K/mm3 (4.5-10.0)
[2025-01-15] MEDS: SODIUM CHLORIDE 0.9% IV 500 ML 999 ML IV CONT ×3 (20:26→23:15)
[2025-01-15] MEDS: METOPROLOL TARTRATE INJ 5 MG/5 ML VIAL IV PUSH (20:26)
[2025-01-15 20:34] LABS: INR 1.6; Prothrombin Time 18.3 Seconds (11.1-14.7)
[2025-01-15 20:35] LABS: Partial Thromboplastin Time 34.9 Seconds (22.3-36.8)
--- OUTSIDE RECORDS SUMMARY | 2025-01-15 20:42 | XMS_ITS | Clinical Summary ---
Author Organization [facility] Address [address] [place] [address] Care Team Providers Care Malt Loader Name Role Phone Marlene Harden MD Primary Care Provider [phone] [facility],non-owned Affiliates and Associated Physician Practices is amultiple site organization consisting of ambulatory clinics and hospital sitesin [place], [place], [place] and [place]. This disclosure is being madepursuant to the Care Everywhere program and may not contain all information available regarding this patient. Last updated 17.[facility] [employer] Allergies No known active allergies Medications * Be aware that medications may not be up to date on this document. Alwaysverify current medications with the patient. albuterol-iprat ropium (DUO-NEB) 0.5-2.5 (3) MG/3ML nebulizer solution Inhale 3 mL by mouth every 4 hours 03/04/2018 Active budesonide (PULMICORT) 1 MG/2ML nebulizer suspension Inhale 1 mg by mouth once daily 03/05/2018 Active apixaban (ELIQUIS) 5 MG tablet Take 1 tablet by mouth 2 times daily 60 tablet 3 03/04/2018 Active citalopram (CELEXA) 20 MG tablet Take 1 tablet by mouth once daily 30 tablet 3 03/05/2018 Active atorvastatin (LIPITOR) 40 MG tablet Take 1 tablet by mouth at bedtime 30 tablet 3 03/04/2018 Active metoprolol tartrate 75 MG TABS Take 75 mg by mouth 2 times daily 60 tablet 3 03/04/2018 Active docusate sodium (COLACE) 100 MG capsule Take 1 capsule by mouth once daily 03/05/2018 Active Active Problems Problem Noted Date Diagnosed Date Acute ischemic right MCA stroke 02/24/2018 Immunizations Immunization Administration Dates Next Due INFLUENZA VACCINE, HIGH-DOSE , QUADR. 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 Gender Identity Not on file Sexual Orientation Not on file Last Filed Vital Signs Vital Sign Reading Time Taken Comments Blood Pressure 120/70 03/04/2018 11:59 AM TRIMMER AND BORER MACHINE OPERATOR Pulse 93 03/04/2018 11:59 AM TRIMMER AND BORER MACHINE OPERATOR Temperature 36.5 C (97.7 F) 03/04/2018 11:59 AM TRIMMER AND BORER MACHINE OPERATOR Respiratory Rate 18 03/04/2018 11:59 AM TRIMMER AND BORER MACHINE OPERATOR Oxygen Saturation 97% 03/04/2018 11:59 AM TRIMMER AND BORER MACHINE OPERATOR Inhaled Oxygen Concentration - - Weight 73 kg (161 lb) 02/27/2018 4:36 AM TRIMMER AND BORER MACHINE OPERATOR Height 167.6 cm (5' 6) 02/27/2018 4:36 AM TRIMMER AND BORER MACHINE OPERATOR Body Mass Index 25.99 02/27/2018 4:36 AM TRIMMER AND BORER MACHINE OPERATOR Plan of Treatment Health Maintenance Due Date Last Done Comments BONE DENSITY TESTING 1950 COLOGUARD (AGES 45-75) - COL ON CA SCREENING 1949 COLON MONITORING 1949 COLONOSCOPY - COLON CA SCREENING 1949 CT COLONOGRAPHY - COLON CA SCREENING 1950 Colorectal Cancer Screening 1949 FIT - COLON CA SCREENING 1949 FLEX SIG - COLON CA SCREENING 1949 MAMMOGRAM 1949 DTAP/TDAP/TD VACCINES (1 - Tdap) 1968 PNEUMOCOCCAL VACCINE 50+ (1 of 2 - PCV) 1968 ZOSTER VACCINE (1 of 2) 11/18/1999 DEPRESSION SCREENING 03/31/2024 Respiratory Syncytial Virus (RSV) Vaccine Pt: or over 60 yrs (1 - 1-dose 75+ series) 2024 COVID-19 VACCINE ( - 2023-2 5 season) 2024 INFLUENZA VACCINE (#1) 2024 03/04/2018 HEPATITIS C SCREENING Completed 10/06/2018 HEPATITIS B VACCINE Aged Out No longe r eligible based on patient's age to complete this topic HIB VACCINE Aged Out No longer eligi ble based on patient's age to complete this topic HPV VACCINE Aged Out No longer eligi ble based on patient's age to complete this topic MENINGOCOCCAL (Group B) VACC INE SHARED DECISION-MAKING Aged Out No longer eligibl e based on patient's age to complete this topic MENINGOCOCCAL GROUPS A/C/Y/W VACCINE Aged Out No longer eligible b ased on patient's age to complete this topic Insurance [id number] [facility] [address] [id number] [facility] MANAGED MEDICARE ADV Advance Directives * Full Code (Latest Code Status on File) Date Activated Date Inactivated Comments 02/24/2018 11:00 PM 03/04/2018 2:40 PM Care Teams Malt Loader Relationship Specialty Start Date End Date Marlene Harden MD [address] [place] [address] [phone] PCP - General 03/06/18
[2025-01-15 20:48] LABS: Alanine Aminotransferase 38 U/L (6-35); Albumin Level 4.1 g/dL (3.5-5.1); Alkaline Phosphatase 106 U/L (38-126); Anion Gap 11 mmol/L (4-12); Aspartate Amino Transferase 36 U/L (14-36); Bilirubin,Total 0.6 mg/dL (0.2-1.3); Blood Urea Nitrogen 46 mg/dL (7-17); Calcium 9.3 mg/dL (8.4-10.2); Carbon Dioxide 25 mmol/L (22-30); Chloride 100 mmol/L (98-107); Estimated Glomerular Filt Rate 40; Glucose 104 mg/dL (65-110); Potassium 2.9 mmol/L (3.4-5.0); Sodium 136 mmol/L (137-145); Total Protein 8.3 g/dL (6.3-8.2)
[2025-01-15 20:54] LABS: NT Pro B Type Natriuretic Pept 2900 pg/mL (19.9-100)
[2025-01-15] MEDS: POTASSIUM CHLORIDE 20 MEQ ER TABLET 40 MEQ PO (21:09)
[2025-01-15] MEDS: METOPROLOL TARTRATE 50 MG TAB PO (21:09)
[2025-01-15 21:15] LABS: Magnesium 2.5 mg/dL (1.6-2.3)
[2025-01-15 21:47] LABS: Add Urine Microscopic? YES; Appearance Urine Turbid (Clear); Glucose Urine UA Trace mg/dL (Negative); Leukocyte Esterase Ur 1+ LEU/UL (Negative); Need Manual Microscopic Reviewed; Nitrate Urine Negative (Negative); Specific Grav Ur 1.020 (1.001-1.035)
[2025-01-15] MEDS: cefTRIAXone 1 GM in SODIUM CHLORIDE 0.9% IV 50 ML 100 ML IVPB (22:07)
[2025-01-16] VITALS (25 sets, daily range): BP systolic 86–110; BP diastolic 55–81; PULSE 73–122; RESP 18–25; TEMP 36.3–36.8; O2SAT 91–100; BMI 29.4
--- NOTE | 2025-01-16 00:33 | P.HP_ITS ---
H&P: HPI History of Present Illness Date/Time: 01/16/25 00:33 Chief Complaint: Weakness and fall Narrative: 74-year-old female who is a poor historian reports she had a fall at assisted living [facility] 4 days prior to admission. She has since had pain of her left shoulder. Otherwise cannot provide succint history. Assisted living documentation report history of anxiety, arrhythmia, CVA, depression, edema, high cholesterol, hypertension, urinary incontinence. On presentation WBC 14, hemoglobin 13.7, INR 1.6, sodium 136, potassium 2.9, serum creatinine 1.31, magnesium 2.5, BNP 2900, H urinalysis abnormal with occasional squamous cells, bacteria 4+, WBC 6-10, leukocyte esterase positive, nitrate negative. Blood cultures and urine culture obtained. AFib with RVR demonstrated on EKG. CT C-spine negative for acute fracture or subluxation, CT head no evidence of acute intracranial abnormality. Left shoulder x-ray no acute fracture, left humerus x-ray no acute fracture. Are in the 140s with blood pressure systolic in the 80s. Patient was given metoprolol 5 mg IV x1, metoprolol 50 mg p.o. x1, subsequently cardiology consulted and amiodarone GTT started. Pain she given ceftriaxone for suspected UTI. Also given 1.5 L fluid bolus with blood pressure improving. Review of Systems Review of Systems: All systems reviewed & are unremarkable except as noted in HPI and below (Subjective) [facility] Past Medical History Medical History (Updated 01/16/25 @ 00:40 by Vanessa Berrios MD) Hypertension History of diabetes mellitus Social History Social History Gender identity (if verbalized by the patient): Female Meds Home Medications and Allergies Home Medications ?Medication ?Instructions ?Recorded ?Confirmed ?Type amitriptyline 10 mg tablet 11/09/20 History apixaban 5 mg tablet (Eliquis) mg 11/09/20 History citalopram 40 mg tablet mg 11/09/20 History duloxetine 20 mg capsule,delayed mg PO 11/09/20 Histo ry release empagliflozin 25 mg tablet mg 11/09/20 History (Jardiance) hydrochlorothiazide 25 mg tablet 11/09/20 History metoprolol tartrate 50 mg tablet 11/09/20 11/09/20 Hi story ketoconazole 2 % topical cream 1 applic topical BID #6 0 grams 07/27/22 Rx cephalexin 500 mg capsule 500 mg PO Q12H 5 days #10 ca ps 11/09/23 Rx Allergies Allergy/AdvReac Type Severity Reaction Status Date / Time No Known Allergies Allergy Unverified 02/02/20 11:40 Vital Signs Vital Signs - 24 hr 01/15/25 18:27 01/15/25 19:20 01/15/25 19:25 Temperature 97.6 F Pulse Rate 106 H Respiratory Rate 18 Blood Pressure 85/69 L 113/82 Pulse Oximetry 98 97 Oxygen Delivery Room Air 01/15/25 19:30 01/15/25 19:31 01/15/25 19:45 Temperature Pulse Rate 144 H 137 H 136 H Respiratory Rate 19 22 H 20 Blood Pressure 88/71 L Pulse Oximetry Oxygen Delivery 01/15/25 19:46 01/15/25 20:12 01/15/25 20:19 Temperature Pulse Rate 128 H 138 H 146 H Respiratory Rate 22 H 17 18 Blood Pressure 93/74 L 96/67 L Pulse Oximetry Oxygen Delivery 01/15/25 20:20 01/15/25 20:26 01/15/25 20:30 Temperature Pulse Rate 145 H 140 H 132 H Respiratory Rate 19 22 H Blood Pressure Pulse Oximetry Oxygen Delivery 01/15/25 20:31 01/15/25 20:45 01/15/25 21:07 Temperature Pulse Rate 136 H 128 H 119 H Respiratory Rate 16 22 H 20 Blood Pressure 99/72 L Pulse Oximetry 95 91 Oxygen Delivery 01/15/25 21:09 01/15/25 21:15 01/15/25 21:17 Temperature Pulse Rate 131 H 134 H 137 H Respiratory Rate 21 H 20 Blood Pressure 83/57 L Pulse Oximetry Oxygen Delivery 01/15/25 21:30 01/15/25 21:45 01/15/25 22:30 Temperature Pulse Rate 136 H 127 H 115 H Respiratory Rate 15 16 19 Blood Pressure Pulse Oximetry 98 97 Oxygen Delivery 01/15/25 22:31 01/15/25 22:32 01/15/25 22:43 Temperature Pulse Rate 115 H 121 H 102 H Respiratory Rate 18 Blood Pressure 86/60 L 102/77 82/62 L Pulse Oximetry 98 Oxygen Delivery 01/15/25 22:43 01/15/25 22:45 01/15/25 23:00 Temperature Pulse Rate 98 105 H 110 H Respiratory Rate 25 H 17 16 Blood Pressure 82/62 L Pulse Oximetry 96 93 97 Oxygen Delivery 01/15/25 23:18 01/15/25 23:30 01/15/25 23:31 Temperature Pulse Rate 107 H 107 H 125 H Respiratory Rate 21 H 17 22 H Blood Pressure 99/78 L Pulse Oximetry Oxygen Delivery 01/15/25 23:32 01/15/25 23:45 Temperature Pulse Rate 114 H 96 Respiratory Rate 23 H 22 H Blood Pressure 96/71 L Pulse Oximetry 96 Oxygen Delivery Exam Const: General: comfortable and no acute distress Other: A&O x3 HENMT: Mouth: Yes moist mucous membranes Eyes: Pupils: Equal, round and reactive pupils present Neck: Neck: supple Resp: Effort & Inspection: normal respiratory effort Auscultation: clear to auscultation bilaterally Cardio: Rate: tachycardic Rhythm: abnormal rhythm GI: GI Palp: Yes Soft to palpation and No Tenderness to palpation present (GI) : General: Yes bladder normal to palpation Neuro: Motor exam (neuro): 5/5 motor strength present throughout Extrem: General: no edema H&P: Results Labs Labs: Short CBC 01/15/25 Range/Units 19:44 WBC 14.1 H (4.5-10.0) K/mm3 Hgb 13.7 (12.0-15.0) g/dL Hct 44.0 (37.0-47.0) % Plt Count 458 H (150-375) k/mm3 BMP 01/15/25 20:23 Sodium 136 L Potassium 2.9 L Chloride 100 Carbon Dioxide 25 BUN 46 H D Creatinine 1.31 H Glucose 104 Calcium 9.3 Liver Function 01/15/25 Range/Units 20:23 Total Bilirubin 0.6 (0.2-1.3) mg/dL AST 36 (14-36) U/L ALT 38 H (6-35) U/L Alkaline Phosphatase 106 (38-126) U/L Albumin 4.1 (3.5-5.1) g/dL Urine 01/15/25 Range/Units 20:59 Urine Color Yellow (Yellow) Urine Appearance Turbid H (Clear) Urine pH 5.5 (5.0-9.0) Ur Specific [place] 1.020 (1.001-1.035) Urine Protein 1+ H (Negative) mg/dL Urine Glucose (UA) Trace H (Negative) mg/dL Assessment and Plan Assessment and plan (1) Atrial fibrillation with RVR: Code(s): I48.91 - Unspecified atrial fibrillation Status: Acute (2) Acute UTI: Code(s): N39.0 - Urinary tract infection, site not specified Status: Acute Plan Admit to IMU. Continue amiodarone GTT, monitor blood pressure/heart rate. Cardiology consulted. Continue RECEIVABLE CLERK Eliquis Continue ceftriaxone. Follow-up blood culture and urine culture. Accu-Cheks a.c. HS. Unclear baseline kidney function, had serum creatinine 1.2 in 2021. Follow serum creatinine trend status post fluid resuscitation. Check bladder scan for retention. Potassium being replaced. Recheck. ----- Patient wishes to be DNR. Resides at [facility]. Hospitalist [facility] Advance Care Plan I have confirmed that the patient's Advanced Care Plan is present, code status is documented, or surrogate decision maker is listed in patient medical record.: Yes Medication Reconciliation I have utilized all available resources to obtain, update and review the patients current medications (includes all prescriptions, OTC, herbals, cannabis, and nutritional supplements).: Yes
--- NOTE | 2025-01-16 01:38 | ADMGEN ---
This patient, Juana Liao, was admitted to IMU Room 232-01 at 235. Patient/family oriented to hospital policies and general routines including ID bracelet, bed and alarms, visiting hours, pain management, procedures, bathroom and other care routines, personal items, smoking policy, room service/diet, and visiting hours. Information on how to activate the Rapid Response Team has been discussed. Patient/Family are encouraged to report perceived risks to care and to ask questions if they do not understand what they are told or what they should do.
[2025-01-16 03:42] LABS: Hematocrit 38.5 % (37.0-47.0); Hemoglobin 11.9 g/dL (12.0-15.0); Immature Granulocyte Percent A 0.4 % (0-0.5); Lymphocytes Absolute Auto 2.18 K/mm3 (0.9-3.2); Mean Corpuscular HGB Conc 30.9 g/dl (32-36); Mean Corpuscular Hemoglobin 25.8 pg (26-34); Mean Corpuscular Volume 83.3 fl (80-100); Nucleated Red Blood Cells Absolute Auto 0.000 K/mm3 (0.0-0.012); Nucleated Red Blood Cells Perc 0.0 % (0.0-0.2); Platelet Count Result 318 k/mm3 (150-375); Red Blood Count 4.62 M/mm3 (4.2-5.4); White Blood Count 13.3 K/mm3 (4.5-10.0)
[2025-01-16 03:54] LABS: INR 1.5; Prothrombin Time 17.6 Seconds (11.1-14.7)
[2025-01-16 04:18] LABS: Anion Gap 8 mmol/L (4-12); Blood Urea Nitrogen 38 mg/dL (7-17); Calcium 8.7 mg/dL (8.4-10.2); Carbon Dioxide 26 mmol/L (22-30); Chloride 105 mmol/L (98-107); Estimated Glomerular Filt Rate 43; Glucose 99 mg/dL (65-110); Magnesium 2.3 mg/dL (1.6-2.3); Potassium 3.5 mmol/L (3.4-5.0); Sodium 139 mmol/L (137-145)
[2025-01-16] MEDS: ACETAMINOPHEN 325 MG TABLET 650 MG PO ×2 (04:44→22:52)
[2025-01-16] MEDS: APIXABAN 5 MG TABLET PO ×2 (08:11→20:24)
[2025-01-16] MEDS: ATORVASTATIN 40 MG TABLET PO (08:11)
--- NOTE | 2025-01-16 08:32 | PM.CNCAR ---
Assessment and Plan Assessment and plan (1) Atrial fibrillation with RVR: Code(s): I48.91 - Unspecified atrial fibrillation Status: Acute Assessment and Plan: 74-year-old female with hypertension, AFib on anticoagulation with apixaban, CKD, history of ?CVA. Patient admitted to the hospital after she reportedly had a fall. Patient is not a great historian. EKG at presentation showed AFib with RVR. Currently, heart rate is in 100s. She was treated with IV metoprolol, and is currently on IV amiodarone. -continue IV amiodarone for now. Resume metoprolol tartrate at a lower dose of 12.5 mg p.o. b.i.d. with holding parameters. Advance dose as necessary and as tolerated. -anticoagulation with apixaban. Patient presented with fall. Recommend PT OT evaluation to check gait stability. Her candidacy for percutaneous left atrial appendage closure can be determined as an outpatient based on fall risk or other barriers/contraindications for chronic anticoagulation. -thyroid panel -echo with Doppler (2) Acute UTI: Code(s): N39.0 - Urinary tract infection, site not specified Status: Acute Assessment and Plan: Appropriate antibiotics and management as per primary team History of Present Illness History of Present Illness Consult date/time: 01/16/25 08:32 Requesting physician: Kayla Saba PA-C Reason For Visit: AFib with RVR Narrative: DATE OF CONSULT: 01/16/2025 REASON FOR CONSULT: AFib with RVR REQUESTING PHYSICIAN: Jayant CHIEF COMPLAINT: Fall, left shoulder discomfort HPI: 74-year-old female with hypertension, AFib on anticoagulation with apixaban, CKD, history of ?CVA. Patient presented to [facility] Emergency Room on 01/15/2025 after she reportedly had a fall at [facility] 4 days prior to admission. Patient complained of left shoulder discomfort. She is not a great historian and unable to provide detailed medical information. Denies chest pain, shortness of breath, palpitation, dizziness or syncope. Baseline activity on certain. Patient does not recall being evaluated by mine analyst as an outpatient. EKG at admission on my personal interpretation showed AFib with RVR, ventricular rate 123 beats per minute. On telemetry, patient is currently in atrial fibrillation with heart rates in 100s. Patient was given IV metoprolol, and is currently on IV amiodarone. NT proBNP 2900. UA suggestive of UTI Following information was gathered from the ER note- CT brain: No evidence of acute intracranial abnormality. No ICH, mass effect or edema. No skull fracture. Chronic microvascular ischemic changes. Atrophy. CT cervical spine: No evidence of acute fracture or traumatic subluxation. No high-grade central canal stenosis. Multilevel spondylosis Chest x-ray: No acute cardiopulmonary abnormality. No focal consolidation, pleural effusion or pneumothorax Review of Systems Review of Systems: As per HPI, information gathered from the patient and from review of the chart. Patient is a poor historian and unable to gather all detailed medical information. [facility] Past Medical History Medical History Hypertension History of diabetes mellitus Family History Family History Father Acute myocardial infarction Social History Social History Years smoked: 50 Smoking status: Current every day smoker Tobacco type: cigarettes Second hand tobacco smoke exposure: Yes Alcohol intake: never Substance use: never Lack of Transportation: No Lack of Food: Never True Current Housing: I Have Housing Concerned About Future Housing: No Difficulty Paying Gas/Electric Bills: No Difficulty Paying for Meds: No Currently Unemployed: No Education: High School Diploma/GED Difficulty w/ Childcare or Family Care: No Gender identity (if verbalized by the patient): Female Spiritual care concerns: No Meds Home Medications and Allergies Home Medications ?Medication ?Instructions ?Recorded ?Confirmed ?Type amitriptyline 10 mg tablet 25 mg PO BID 11/09/20 01/16/25 History apixaban 5 mg tablet (Eliquis) 5 mg PO DAILY 11/09/20 01/16/25 History citalopram 40 mg tablet 40 mg PO DAILY 11/09/20 01/16/25 History duloxetine 20 mg capsule,delayed 20 mg PO DAILY 11/09/20 01/16/25 History release empagliflozin 25 mg tablet 25 mg PO DAILY 11/09/20 01/16/25 History (Jardiance) hydrochlorothiazide 25 mg tablet 50 mg PO DAILY 11/09/20 01/16/25 History metoprolol tartrate 50 mg tablet 50 mg PO DAILY 11/09/20 01/16/25 History ketoconazole 2 % topical cream 1 applic topical BID #60 grams 07/27/22 01/16/25 Rx atorvastatin 40 mg tablet 40 mg PO DAILY 01/16/25 01/16/25 History ibuprofen 600 mg tablet 600 mg PO Q8H PRN fever or pain 01/16/25 01/16/25 History Allergies Allergy/AdvReac Type Severity Reaction Status Date / Time No Known Allergies Allergy Verified 01/16/25 01:57 Vital Signs Vital Signs - 24 hr 01/15/25 18:27 01/15/25 19:20 01/15/25 19:25 Temperature 36.4 C Pulse Rate 106 H Respiratory Rate 18 Blood Pressure 85/69 L 113/82 Pulse Oximetry 98 97 Oxygen Delivery Room Air 01/15/25 19:30 01/15/25 19:31 01/15/25 19:45 Temperature Pulse Rate 144 H 137 H 136 H Respiratory Rate 19 22 H 20 Blood Pressure 88/71 L Pulse Oximetry Oxygen Delivery 01/15/25 19:46 01/15/25 20:12 01/15/25 20:19 Temperature Pulse Rate 128 H 138 H 146 H Respiratory Rate 22 H 17 18 Blood Pressure 93/74 L 96/67 L Pulse Oximetry Oxygen Delivery 01/15/25 20:20 01/15/25 20:26 01/15/25 20:30 Temperature Pulse Rate 145 H 140 H 132 H Respiratory Rate 19 22 H Blood Pressure Pulse Oximetry Oxygen Delivery 01/15/25 20:31 01/15/25 20:45 01/15/25 21:07 Temperature Pulse Rate 136 H 128 H 119 H Respiratory Rate 16 22 H 20 Blood Pressure 99/72 L Pulse Oximetry 95 91 Oxygen Delivery 01/15/25 21:09 01/15/25 21:15 01/15/25 21:17 Temperature Pulse Rate 131 H 134 H 137 H Respiratory Rate 21 H 20 Blood Pressure 83/57 L Pulse Oximetry Oxygen Delivery 01/15/25 21:30 01/15/25 21:45 01/15/25 22:30 Temperature Pulse Rate 136 H 127 H 115 H Respiratory Rate 15 16 19 Blood Pressure Pulse Oximetry 98 97 Oxygen Delivery 01/15/25 22:31 01/15/25 22:32 01/15/25 22:43 Temperature Pulse Rate 115 H 121 H 102 H Respiratory Rate 18 Blood Pressure 86/60 L 102/77 82/62 L Pulse Oximetry 98 Oxygen Delivery 01/15/25 22:43 01/15/25 22:45 01/15/25 23:00 Temperature Pulse Rate 98 105 H 110 H Respiratory Rate 25 H 17 16 Blood Pressure 82/62 L Pulse Oximetry 96 93 97 Oxygen Delivery 01/15/25 23:18 01/15/25 23:30 01/15/25 23:31 Temperature Pulse Rate 107 H 107 H 125 H Respiratory Rate 21 H 17 22 H Blood Pressure 99/78 L Pulse Oximetry Oxygen Delivery 01/15/25 23:32 01/15/25 23:45 01/16/25 01:03 Temperature Pulse Rate 114 H 96 118 H Respiratory Rate 23 H 22 H Blood Pressure 96/71 L 108/78 Pulse Oximetry 96 Oxygen Delivery 01/16/25 01:14 01/16/25 02:00 01/16/25 02:00 Temperature Pulse Rate 111 H 108 H 108 H Respiratory Rate 19 Blood Pressure 108/78 110/70 Pulse Oximetry 96 Oxygen Delivery 01/16/25 02:03 01/16/25 04:00 01/16/25 04:00 Temperature 36.4 C L 36.4 C L Pulse Rate 98 107 H 95 Respiratory Rate 25 H 23 H Blood Pressure 110/70 91/59 L 91/59 L Pulse Oximetry 98 100 Oxygen Delivery 01/16/25 04:00 01/16/25 06:00 01/16/25 06:00 Temperature Pulse Rate 107 H 97 102 H Respiratory Rate Blood Pressure 105/61 Pulse Oximetry Oxygen Delivery 01/16/25 06:07 01/16/25 08:03 01/16/25 08:10 Temperature 36.6 C 36.4 C Pulse Rate 87 122 H 108 H Respiratory Rate 18 18 Blood Pressure 105/61 110/81 110/81 Pulse Oximetry 100 99 Oxygen Delivery Exam Narrative: PHYSICAL EXAMINATION: GENERAL: Alert, no acute distress MENTAL STATUS: Anxious EYES: Extraocular movements intact, no pallor EARS: External ears appear normal, hearing grossly normal NOSE: Normal and patent, no discharge MOUTH: Mucous membranes moist, tongue normal NECK: Supple, no JVD CHEST: Good respiratory effort, clear to auscultation HEART: Tachycardia, irregularly irregular ABDOMEN: Soft, nontender NEUROLOGICAL: Alert, normal speech MUSCULOSKELETAL: no amputation EXTREMITIES: And deformity; no edema SKIN: no rash on the exposed area, no cyanosis PSYCHIATRIC: Anxious Results Labs and Meds 01/16/25 03:19 01/16/25 03:19 Lab results: Cardiac Enzymes 01/15/25 Range/Units 20:23 AST 36 (14-36) U/L Coagulation 01/15/25 01/15/25 01/16/25 Range/Units 19:44 20:17 03:19 PT Cancelled 18.3 H 17.6 H APTT Cancelled 34.9 CBC 01/15/25 01/16/25 Range/Units 19:44 03:19 WBC 14.1 H 13.3 H (4.5-10.0) K/mm3 RBC 5.29 4.62 (4.2-5.4) M/mm3 Hgb 13.7 11.9 L (12.0-15.0) g/dL Hct 44.0 38.5 (37.0-47.0) % Plt Count 458 H 318 (150-375) k/mm3 Lymph # (Auto) 1.92 2.18 (0.9-3.2) K/mm3 Graham # (Auto) 1.1 H 1.2 H (0.1-0.6) K/mm3 Eos # (Auto) 0.2 0.3 (0-0.3) K/mm3 Baso # (Auto) 0.1 0.1 (0.0-0.1) K/mm3 Comprehensive Metabolic Panel 01/15/25 01/16/25 Range/Units 20:23 03:19 Sodium 136 L 139 (137-145) mmol/L Potassium 2.9 L 3.5 (3.4-5.0) mmol/L Chloride 100 105 (98-107) mmol/L Carbon Dioxide 25 26 (22-30) mmol/L BUN 46 H D 38 H (7-17) mg/dL Creatinine 1.31 H 1.22 H (0.7-1.0) mg/dL Glucose 104 99 (65-110) mg/dL Calcium 9.3 8.7 (8.4-10.2) mg/dL AST 36 (14-36) U/L ALT 38 H (6-35) U/L Alkaline Phosphatase 106 (38-126) U/L Total Protein 8.3 H (6.3-8.2) g/dL Albumin 4.1 (3.5-5.1) g/dL Intake and Output 01/15/25 01/16/25 01/16/25 23:59 07:59 15:59 Intake Total 1650 515.1 Output Total 220 Balance 1650 295.1 Intake: IV 1650 165.1 Amiodarone 150 mg/D5w 100 ml 100 150 mg In 100 ml @ 15 MG/MIN 600 mls/hr IV CONT .Q10M STA Rx #:[id number] Amiodarone 360 mg/D5w 200 ml 165.1 360 mg In 200 ml @ 1 MG/MIN 33. 333 mls/hr IV CONT .Q6H ONE Rx# :[id number] Sodium Chloride 0.9% IV 500 ml 1500 @ 999 mls/hr IV CONT .Q31M STA Rx#:[id number] cefTRIAXone 1 gm In Sodium 50 Chloride 0.9% IV 50 ml @ 100 mls/hr IVPB ONCE STA Rx#: [id number] Oral 350 Output: Urine 220 Patient Weight 01/16/25 23:59 Weight 64.7 kg
--- NOTE | 2025-01-16 09:05 | P.PNIM_ITS ---
Progress Note: A&P Assessment and Plan (1) Atrial fibrillation with RVR: Code(s): I48.91 - Unspecified atrial fibrillation Status: Acute (2) Acute UTI: Code(s): N39.0 - Urinary tract infection, site not specified Status: Acute Plan Admit to IMU. Continue amiodarone GTT, monitor blood pressure/heart rate. Cardiology consulted. 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 Follow-up blood culture and urine culture. Accu-Cheks a.c. HS. Unclear baseline kidney function, had serum creatinine 1.2 in 2021. Follow serum creatinine trend status post fluid resuscitation. Check bladder scan for retention. Potassium being replaced. Recheck. Patient wishes to be DNR. Resides at [facility]. - continue amio drip until eval per cardiology remains chest pain free continue tele monitoring k 3.5 this am, will add daily supplements wbc improved Time Spent With Patient Time with patient: 25 - 35 minutes Subjective Date/time seen: 01/16/25 09:05 Interval history: 74-year-old female with hypertension, AFib on anticoagulation with apixaban, CKD, history of CVA? Patient presented to [facility] Emergency Room on 01/15/2025 after she reportedly had a fall at [facility] 4 days prior to admission. Patient complained of left shoulder discomfort but unable to provide much details at all. Denies chest pain, shortness of breath, palpitation, dizziness or syncope. Cardiology comsulted, she wa sstarted on amio drip. On ceftriaxone for UTI. Review of Systems Review of Systems: All systems reviewed & are unremarkable except as noted in HPI and below (Subjective) Exam Const: General: comfortable and no acute distress Other: A&O x3 HENMT: Mouth: Yes moist mucous membranes Eyes: Pupils: Equal, round and reactive pupils present Neck: Neck: supple Resp: Effort & Inspection: normal respiratory effort Auscultation: clear to auscultation bilaterally Cardio: Rate: tachycardic Rhythm: abnormal rhythm : General: Yes bladder normal to palpation Bimanual exam- vagina & uterus: bladder normal to palpation Neuro: Cranial nerves: Yes Equal, round and reactive pupils present Motor exam (neuro): 5/5 motor strength present throughout Extrem: General: no edema Objective Data Vital Signs Vital Signs: Vital Signs - 24 hr 01/15/25 18:27 01/15/25 19:20 01/15/25 19:25 Temperature 97.6 F Pulse Rate 106 H Respiratory Rate 18 Blood Pressure 85/69 L 113/82 Pulse Oximetry 98 97 Oxygen Delivery Room Air 01/15/25 19:30 01/15/25 19:31 01/15/25 19:45 Temperature Pulse Rate 144 H 137 H 136 H Respiratory Rate 19 22 H 20 Blood Pressure 88/71 L Pulse Oximetry Oxygen Delivery 01/15/25 19:46 01/15/25 20:12 01/15/25 20:19 Temperature Pulse Rate 128 H 138 H 146 H Respiratory Rate 22 H 17 18 Blood Pressure 93/74 L 96/67 L Pulse Oximetry Oxygen Delivery 01/15/25 20:20 01/15/25 20:26 01/15/25 20:30 Temperature Pulse Rate 145 H 140 H 132 H Respiratory Rate 19 22 H Blood Pressure Pulse Oximetry Oxygen Delivery 01/15/25 20:31 01/15/25 20:45 01/15/25 21:07 Temperature Pulse Rate 136 H 128 H 119 H Respiratory Rate 16 22 H 20 Blood Pressure 99/72 L Pulse Oximetry 95 91 Oxygen Delivery 01/15/25 21:09 01/15/25 21:15 01/15/25 21:17 Temperature Pulse Rate 131 H 134 H 137 H Respiratory Rate 21 H 20 Blood Pressure 83/57 L Pulse Oximetry Oxygen Delivery 01/15/25 21:30 01/15/25 21:45 01/15/25 22:30 Temperature Pulse Rate 136 H 127 H 115 H Respiratory Rate 15 16 19 Blood Pressure Pulse Oximetry 98 97 Oxygen Delivery 01/15/25 22:31 01/15/25 22:32 01/15/25 22:43 Temperature Pulse Rate 115 H 121 H 102 H Respiratory Rate 18 Blood Pressure 86/60 L 102/77 82/62 L Pulse Oximetry 98 Oxygen Delivery 01/15/25 22:43 01/15/25 22:45 01/15/25 23:00 Temperature Pulse Rate 98 105 H 110 H Respiratory Rate 25 H 17 16 Blood Pressure 82/62 L Pulse Oximetry 96 93 97 Oxygen Delivery 01/15/25 23:18 01/15/25 23:30 01/15/25 23:31 Temperature Pulse Rate 107 H 107 H 125 H Respiratory Rate 21 H 17 22 H Blood Pressure 99/78 L Pulse Oximetry Oxygen Delivery 01/15/25 23:32 01/15/25 23:45 01/16/25 01:03 Temperature Pulse Rate 114 H 96 118 H Respiratory Rate 23 H 22 H Blood Pressure 96/71 L 108/78 Pulse Oximetry 96 Oxygen Delivery 01/16/25 01:14 01/16/25 02:00 01/16/25 02:00 Temperature Pulse Rate 111 H 108 H 108 H Respiratory Rate 19 Blood Pressure 108/78 110/70 Pulse Oximetry 96 Oxygen Delivery 01/16/25 02:03 01/16/25 04:00 01/16/25 04:00 Temperature 97.5 F L 97.5 F L Pulse Rate 98 107 H 95 Respiratory Rate 25 H 23 H Blood Pressure 110/70 91/59 L 91/59 L Pulse Oximetry 98 100 Oxygen Delivery 01/16/25 04:00 01/16/25 06:00 01/16/25 06:00 Temperature Pulse Rate 107 H 97 102 H Respiratory Rate Blood Pressure 105/61 Pulse Oximetry Oxygen Delivery 01/16/25 06:07 01/16/25 08:03 01/16/25 08:10 Temperature 97.8 F 97.6 F Pulse Rate 87 122 H 108 H Respiratory Rate 18 18 Blood Pressure 105/61 110/81 110/81 Pulse Oximetry 100 99 Oxygen Delivery Intake/Output Intake/Output: Intake & Output 01/13/25 01/14/25 01/15/25 01/16/25 23:59 23:59 23:59 23:59 Intake Total 1650 515.1 Output Total 220 Balance 1650 295.1 Meds/Results Medications: Active Medications Generic Name Dose Route Start Last Admin Trade Name Freq PRN Reason Stop Dose Admin Acetaminophen 650 mg 01/16/25 04:22 01/16/25 04:44 Acetaminophen 325 Mg Tablet PO 650 mg Q6H PRN Administration Pain Rated 5 or Less Apixaban 5 mg 01/16/25 09:00 01/16/25 08:11 Apixaban 5 Mg Tablet PO 5 mg Q12HR DIMA Administration Atorvastatin Calcium 40 mg 01/16/25 09:00 01/16/25 08:11 Atorvastatin 40 Mg Tablet PO 40 mg DAILY DIMA Administration Dextrose 12.5 gm 01/16/25 00:41 Dextrose 50% 25 Gm/50 Ml Syringe IV PUSH PRN PRN Hypoglycemia Protocol Glucose 15 gm 01/16/25 00:41 Glucose Oral Gel 15 Gm Of Glucse In 37.5 Gm Tube PO PRN PRN Hypoglycemia Protocol Amiodarone HCl/Dextrose 360 mg in 200 mls @ 16.667 mls/hr 01/16/25 06:00 01/16/25 08:10 Nexterone 360 Mg/D5w 200 Ml IV CONT 0.5 mg/min .Q12H DIMA 16.67 mls/hr 0.5 MG/MIN Administration Dextrose 1,000 mls @ 100 mls/hr 01/16/25 00:41 Dextrose 5% 1,000 Ml IVPB PRN PRN Hypoglycemia Protocol Insulin Aspart 2 - 5 units 01/16/25 08:00 01/16/25 08:05 Insulin Aspart (*Bkc) 100 Units/Ml SUB-Q Not Given TIDWM [facility] Protocol Insulin Aspart 1 - 2 units 01/16/25 21:00 Insulin Aspart (*Bkc) 100 Units/Ml SUB-Q HS [facility] Protocol Metoprolol Tartrate 12.5 mg 01/16/25 09:00 Metoprolol Tartrate 12.5 Mg Tablet PO Q12HR DIMA Perflutren Lipid Microsphere 0 ml 01/16/25 08:47 Perflutren Lipid Microspheres 1.5 Ml Vial Diluted To 10 Ml Total Volume IV PUSH 01/19/25 08:48 ONCE PRN adequate visualization Protocol Radiology Results: ITS Impressions Humerus X-Ray 01/15/25 19:17 Impression: No acute fracture or malalignment. Shoulder X-Ray 01/15/25 19:17 Impression: No acute fracture or malalignment. Chest X-Ray 01/16/25 06:09 IMPRESSION: 1. No acute cardiopulmonary findings. Labs Labs: Laboratory Results - last 24 hr 01/15/25 01/15/25 01/15/25 19:44 20:17 20:23 WBC 14.1 H RBC 5.29 Hgb 13.7 Hct 44.0 MCV 83.2 MCH 25.9 L MCHC 31.1 L RDW 19.1 H Plt Count 458 H MPV 11.0 H Immature Gran % (Auto) 0.4 Neut % (Auto) 76.2 H Lymph % (Auto) 13.6 L [place] % (Auto) 8.0 Eos % (Auto) 1.4 Baso % (Auto) 0.4 Lymph # (Auto) 1.92 [place] # (Auto) 1.1 H Eos # (Auto) 0.2 Baso # (Auto) 0.1 Abs Immat Gran (auto) 0.05 H Absolute Neuts (auto) 10.7 H Absolute Nucleated RBC 0.000 Nucleated RBC % 0.0 PT Cancelled 18.3 H INR Cancelled 1.6 APTT Cancelled 34.9 D-Dimer Cancelled < 0.27 Sodium 136 L Potassium 2.9 L Chloride 100 Carbon Dioxide 25 Anion Gap 11 BUN 46 H D Creatinine 1.31 H Estim Creat Clear Calc Not Reportable Estimated GFR 40 L Glucose 104 POC Capillary Glucose Calcium 9.3 Magnesium 2.5 H Total Bilirubin 0.6 AST 36 ALT 38 H Alkaline Phosphatase 106 NT-Pro-B Natriuret Pep 2900 H Total Protein 8.3 H Albumin 4.1 Urine Color Urine Appearance Urine pH Ur Specific [place] Urine Protein Urine Glucose (UA) Urine Ketones Ur Blood (Man) Urine Nitrate Urine Bilirubin Urine Urobilinogen Add Ur Microanalysis Leukocyte Esterase Rfl Urine RBC Urine WBC Ur Squamous Epith Cells Urine Bacteria Urine Casts 01/15/25 01/16/25 01/16/25 20:59 03:19 06:45 WBC 13.3 H RBC 4.62 Hgb 11.9 L Hct 38.5 MCV 83.3 MCH 25.8 L MCHC 30.9 L RDW 18.4 H Plt Count 318 MPV 10.6 H Immature Gran % (Auto) 0.4 Neut % (Auto) 72.0 Lymph % (Auto) 16.4 L [place] % (Auto) 8.9 H Eos % (Auto) 1.9 Baso % (Auto) 0.4 Lymph # (Auto) 2.18 [place] # (Auto) 1.2 H Eos # (Auto) 0.3 Baso # (Auto) 0.1 Abs Immat Gran (auto) 0.05 H Absolute Neuts (auto) 9.6 H Absolute Nucleated RBC 0.000 Nucleated RBC % 0.0 PT 17.6 H INR 1.5 APTT D-Dimer Sodium 139 Potassium 3.5 Chloride 105 Carbon Dioxide 26 Anion Gap 8 BUN 38 H Creatinine 1.22 H Estim Creat Clear Calc Not Reportable Estimated GFR 43 L Glucose 99 POC Capillary Glucose 100 Calcium 8.7 Magnesium 2.3 Total Bilirubin AST ALT Alkaline Phosphatase NT-Pro-B Natriuret Pep Total Protein Albumin Urine Color Yellow Urine Appearance Turbid H Urine pH 5.5 Ur Specific [place] 1.020 Urine Protein 1+ H Urine Glucose (UA) Trace H Urine Ketones Trace H Ur Blood (Man) Negative Urine Nitrate Negative Urine Bilirubin Negative Urine Urobilinogen 1.0 Add Ur Microanalysis Reviewed Leukocyte Esterase Rfl 1+ H Urine RBC >100 H Urine WBC 6-10 H Ur Squamous Epith Cells Occasional Urine Bacteria 4+ Urine Casts 11-20
[2025-01-16] MEDS: METOPROLOL TARTRATE 12.5 MG TABLET PO ×2 (09:29→20:24)
[2025-01-16 09:53] LABS: Thyroid Stimulating Hormone Reflex 3.510 uIU/mL (0.465-4.68)
[2025-01-16] MEDS: POTASSIUM CHLORIDE 20 MEQ PACKET (FOR LIQUID) 40 MEQ PO (11:49)
--- NOTE | 2025-01-16 13:45 | PC.NURSE ---
Spoke with Shanta regarding pt bp being a little low at 86/55. Will monitor and recheck
[2025-01-17] VITALS (21 sets, daily range): BP systolic 98–140; BP diastolic 62–84; PULSE 71–82; RESP 14–30; TEMP 35.8–36.8; O2SAT 97–100
--- NOTE | 2025-01-17 | ECHO_ITS ---
Patient Info Name: Juana Liao Age: 74 years : 1950 Gender: Female Ht: 50 in Wt: 150 lbs BSA: 1.60 m2 HR: 74 bpm BP: 98 / 67 mmHg Heart Rhythm: Sinus Rhythm Technical Quality: Fair Exam Date: 01/17/2025 1:58 PM Patient Status: I Admit Date: 01/16/2025 Exam Type: CA echo dop color flow w con Complete two-dimensional, color flow and Doppler transthoracic echocardiogram is performed with contrast to opacify the left ventricle and to improve the deliniation of the left ventricle endocardial borders. Staff Referring Physician: Kayla Saba PAC Cashier Or Checker Stock Clerk: Valeria Escamilla Attending Provider: Vanessa Berrios Contrast/Agitated Saline Contrast/Ag. Saline: Definity Amount: 2.00 ml Administered By: Valeria Escamilla Existing IV Access: Yes IV Access Condition: patent with no signs of infiltration Summary 1. The left ventricle is normal in size and systolic function. The left ventricular ejection fraction is visually estimated to be 65-70%. There are no regional wall motion abnormalities. There is abnormal diastolic function. 2. The right ventricle is normal in size and systolic function. 3. The aortic valve is not well visualized. There is no hemodynamically significant aortic stenosis by echocardiographic criteria. There is no aortic regurgitation. 4. The left atrium is normal size. 5. Normal inferior vena cava with >50% collapse upon inspiration consistent with normal right atrial pressure, 3 mmHg. Left Ventricle The left ventricle is normal in size and systolic function. The left ventricular ejection fraction is visually estimated to be 65-70%. There are no regional wall motion abnormalities. There is abnormal diastolic function. Right Ventricle The right ventricle is normal in size and systolic function. Left Atria The left atrium is normal size. Right Atria The right atrium is normal size. Atrial Septum The atrial septum is normal. Aortic Valve The aortic valve is not well visualized. There is no hemodynamically significant aortic stenosis by echocardiographic criteria. There is no aortic regurgitation. Pulmonic Valve The pulmonic valve is not well visualized. Mitral Valve There is mitral annular calcification. There is no mitral stenosis. There is trace mitral regurgitation. Tricuspid Valve The tricuspid valve is normal. There is trace tricuspid regurgitation. Pericardium/Pleural Pericardium is normal in appearance with no evidence for significant pericardial effusion. Inferior Vena Cava Normal inferior vena cava with >50% collapse upon inspiration consistent with normal right atrial pressure, 3 mmHg. Aorta The aortic root is not well visualized. Left Ventricular Outflow Tract Name Value Normal LVOT 2D LVOT Diameter 1.9 cm LVOT Doppler LVOT Peak Velocity 121 cm/s LVOT Peak Gradient 6 mmHg LVOT Mean Gradient 3 mmHg LVOT VTI 25 cm LVOT VTI/AV VTI Ratio 0.9 LVOT Stroke Volume 70 ml LVOT CO 5.2 l/min LVOT CI 3.3 l/min/m2 Mitral Valve Name Value Normal MV Diastolic Function MV E Peak Velocity 75 cm/s MV A Peak Velocity 48 cm/s MV E/A 1.6 MV Decel Time (PW) 142 ms MV Annular TDI MV E/e' (Septal) 16.6 MV E/e' (Lateral) 8.9 MV E/e' (Average) 12.8 Tricuspid Valve Name Value Normal TV Regurgitation Doppler TR Peak Velocity 227 cm/s TR Peak Gradient 21 mmHg Estimated PAP/RSVP RA Pressure 3 mmHg <=5 PA Systolic Pressure 24 mmHg <36 RV Systolic Pressure 24 mmHg <36 TV Annular TDI TV Lateral Diane s' Velocity 13.4 cm/s >=9.5 Aorta Name Value Normal Ascending Aorta Ao Root Diameter (MM) 2.3 cm Ao Root Diam Index (MM) 1.4 cm/m2 Aortic Valve Name Value Normal AV Doppler AV Peak Velocity 146 cm/s AV Peak Gradient 9 mmHg AV Mean Gradient 5 mmHg AV VTI 28 cm AV Area (Cont Eq VTI) 2.5 cm2 >=3.0 AV Area (Cont Eq Raad) 2.3 cm2 AV DI (Raad) 0.83 AV Regurgitation 2D LVOT Area 2.8 cm2 Ventricles Name Value Normal LV Dimensions 2D/MM IVS Diastolic Thickness (2D) 1.0 cm 0.6-1.0 LVID Diastole (2D) 4.3 cm 3.8-5.2 LVIW Diastolic Thickness (2D) 0.9 cm 0.6-0.9 LVID Systole (2D) 2.4 cm 2.2-3.5 LVOT Diameter 1.9 cm LV Mass (2D Cubed) 127.78 g 67.00-162.00 LV Mass Index (2D Cubed) 80 g/m2 43-95 Relative Wall Thickness (2D) 0.42 <=0.42 LV Fractional Shortening/Ejection Fraction 2D/MM LV Fractional Shortening (2D) 43 % 27-45 LV EF (2D Teichholz) 75 % LV Diastolic Volume (4C MOD) 54 ml LV EF (4C MOD) 80 % LV Diastolic Volume (2C MOD) 59 ml LV EF (2C MOD) 77 % LV Diastolic Volume (BP MOD) 58 ml 46-106 LV Diastolic Volume Index (BP MOD) 36 ml/m2 29-61 LV Systolic Volume (BP MOD) 12 ml 14-42 LV Systolic Volume Index (BP MOD) 7 ml/m2 8-24 LV EF (BP MOD) 79 % 54-74 LV Diastolic Length (4C) 7.2 cm LV Systolic Length (4C) 5.5 cm LV Stroke Volume (4C MOD) 43 ml Atria Name Value Normal LA Dimensions LA Dimension (MM) 3.3 cm 2.7-3.8 LA Volume (4C A-L) 36 ml LA Volume (BP A-L) 41 ml RA Dimensions RA Systolic Major [place] Length (4C) 5.0 cm 2.2-2.8 RA Area (4C) 13.5 cm2 <=18.0 Report Signatures
--- NOTE | 2025-01-17 02:06 | PC.NURSE ---
patient complained unable to void. Voided only a few drops. bladder scanned residual 12ml
--- NOTE | 2025-01-17 06:48 | PM.IMPN ---
Progress Note: A&P Assessment and Plan (1) Fall: Code(s): W19.XXXA - Unspecified fall, initial encounter Status: Acute Assessment and Plan: Reported mechanical fall at assisted living, denies head strike and loc Denies lightheadedness and dizziness prior to fall Head CT: Multiple old infarcts in the brain and worsened extensive nonspecific cerebral white matter disease which likely represents chronic small vessel ischemic disease C spine CT: no fracture of mild cervical spondylosis Chest XR, humerus, shoulder, and pelvis xr unremarkable PT/OT Continues to endorse left arm pain. Continue tylenol and started on lidocaine patch. (2) Atrial fibrillation with RVR: Code(s): I48.91 - Unspecified atrial fibrillation Status: Acute Assessment and Plan: Patient was initially treated with IV metoprolol and was transitioned to IV amiodarone on admission - EKG on admission with Afib RVR HR 123 - Medication: Eliquis 5 mg bid, metoprolol 12.5 mg BID and - TSH ordered to rule out metabolic cause for tachyarrhythmia WNL - Echo ordered - Telemetry - Cardiology consulted Transitioned to po amiodarone, continue metoprolol and eliquis Her candidacy for percutaneous left atrial appendage closure can be determined as an outpatient Converted back to sinus rhythm with stable HR. Transitioned from IV to PO amiodarone per cardiology. Continue metoprolol 12.5 BID and eliquis 5 mg BID. (3) Acute UTI: Code(s): N39.0 - Urinary tract infection, site not specified Status: Acute Assessment and Plan: - UA concerning for infection - UC obtained on 01/15: pending - Blood culture obtained on 01/15: pending - previous micro reviewed however dating back to 2021 klebsiella oxytoca with resistance to ampicillin, cefazolin, and macrobid - started on rocephin on 01/15 (4) CKD (chronic kidney disease): Code(s): N18.9 - Chronic kidney disease, unspecified Status: Acute Assessment and Plan: Chronic, unclear baseline kidney function however creatinine 1.2 in 2021. Follow serum creatinine trend status post fluid resuscitation. Check bladder scan for retention. (5) Hypertension: Code(s): I10 - Essential (primary) hypertension Status: Acute Assessment and Plan: Chronic, continue home medications Patient hypotension on admission likely related to afib RVR - metoprolol 12.5 mg BID - holding HCTZ 50 mg daily, resume as appropriate - blood pressures remain stable, continue to monitor Time Spent With Patient Time with patient: 25 - 35 minutes Subjective Date/time seen: 01/17/25 06:48 Interval history: 74-year-old female with past medical history of hypertension, AFib on anticoagulation with apixaban, and CKD presents to the hospital for a fall. Patient is pleasant sitting up comfortably in bed. She continues to endorse pain with movement the left forearm more so in her shoulder region. She denies any associated tingling/numbness or shooting pain. She has no other complaints denying chest pain, palpitations, nausea/vomiting, and abdominal pain. Review of Systems Review of Systems: All systems reviewed & are unremarkable except as noted in HPI and below (Subjective) Exam Narrative: AF HR 74 RR 16 Spo2 99 BP 113/62 General: female in no acute respiratory distress who is nontoxic appearing, sitting up in bed. HEENT: Normocephalic. Atraumatic. Extraocular movement intact. Sclera clear and anicteric. No facial asymmetry. Chest: Lungs are clear to auscultation bilaterally. No wheezes or crackles. CV: Heart was regular rate and rhythm. Abd: Abdomen was soft. Nontender. Nondistended. Positive bowel sounds. Ext: No clubbing, cyanosis, or edema. 2+ DP pulses bilaterally. Neuro: Patient is alert and oriented x4. Speech is clear. Objective Data Vital Signs Vital Signs: Vital Signs - 24 hr 01/16/25 08:00 01/16/25 08:00 01/16/25 08:03 Temperature 97.6 F Pulse Rate 101 H 122 H Respiratory Rate 18 Blood Pressure 110/81 Pulse Oximetry 99 Oxygen Delivery Room Air 01/16/25 08:10 01/16/25 09:29 01/16/25 10:00 Temperature Pulse Rate 108 H 99 102 H Respiratory Rate Blood Pressure 110/81 97/60 L Pulse Oximetry Oxygen Delivery 01/16/25 10:00 01/16/25 11:56 01/16/25 12:00 Temperature 97.3 F L Pulse Rate 102 H 104 H 104 H Respiratory Rate 18 Blood Pressure 93/64 L 93/64 L Pulse Oximetry 100 Oxygen Delivery 01/16/25 12:00 01/16/25 12:00 01/16/25 13:49 Temperature 98.1 F Pulse Rate 99 98 Respiratory Rate 18 Blood Pressure 86/55 L Pulse Oximetry 99 Oxygen Delivery Room Air 01/16/25 14:00 01/16/25 14:00 01/16/25 16:00 Temperature 98.1 F Pulse Rate 96 96 107 H Respiratory Rate 18 Blood Pressure 86/55 L 102/61 Pulse Oximetry 99 Oxygen Delivery 01/16/25 16:00 01/16/25 16:00 01/16/25 16:00 Temperature Pulse Rate 98 105 H Respiratory Rate Blood Pressure 102/61 Pulse Oximetry Oxygen Delivery Room Air 01/16/25 18:00 01/16/25 18:00 01/16/25 18:00 Temperature 98.1 F Pulse Rate 102 H 102 H 73 Respiratory Rate 18 Blood Pressure 103/73 103/73 Pulse Oximetry 98 Oxygen Delivery 01/16/25 20:00 01/16/25 20:00 01/16/25 20:00 Temperature 98.2 F Pulse Rate 76 78 Respiratory Rate 18 Blood Pressure 109/67 Pulse Oximetry 91 Oxygen Delivery Room Air 01/16/25 20:11 01/16/25 20:21 01/16/25 20:22 Temperature Pulse Rate 75 75 75 Respiratory Rate Blood Pressure 109/67 Pulse Oximetry Oxygen Delivery 01/16/25 20:24 01/16/25 22:19 01/16/25 22:32 Temperature Pulse Rate 75 76 76 Respiratory Rate Blood Pressure 105/73 Pulse Oximetry Oxygen Delivery 01/17/25 00:00 01/17/25 00:00 01/17/25 00:00 Temperature 98.2 F Pulse Rate 72 72 Respiratory Rate 16 Blood Pressure 114/65 114/65 Pulse Oximetry 98 Oxygen Delivery Room Air 01/17/25 00:00 01/17/25 02:00 01/17/25 02:03 Temperature Pulse Rate 80 78 74 Respiratory Rate Blood Pressure 133/84 Pulse Oximetry Oxygen Delivery 01/17/25 04:00 01/17/25 04:00 01/17/25 04:00 Temperature 98.3 F Pulse Rate 75 73 Respiratory Rate 16 Blood Pressure 115/65 Pulse Oximetry 99 Oxygen Delivery Room Air 01/17/25 04:30 01/17/25 06:00 01/17/25 06:07 Temperature Pulse Rate 75 71 74 Respiratory Rate Blood Pressure 115/65 98/67 L Pulse Oximetry Oxygen Delivery Intake/Output Intake/Output: Intake & Output 01/14/25 01/15/25 01/16/25 01/17/25 23:59 23:59 23:59 23:59 Intake Total 1650 1191.5 246.3 Output Total 770 250 Balance 1650 421.5 -3.7 Meds/Results Medications: Active Medications Generic Name Dose Route Start Last Admin Trade Name Freq PRN Reason Stop Dose Admin Acetaminophen 650 mg 01/16/25 04:22 01/16/25 22:52 Acetaminophen 325 Mg Tablet PO 650 mg Q6H PRN Administration Pain Rated 5 or Less Apixaban 5 mg 01/16/25 09:00 01/16/25 20:24 Apixaban 5 Mg Tablet PO 5 mg Q12HR DIMA Administration Atorvastatin Calcium 40 mg 01/16/25 09:00 01/16/25 08:11 Atorvastatin 40 Mg Tablet PO 40 mg DAILY DIMA Administration Dextrose 12.5 gm 01/16/25 00:41 Dextrose 50% 25 Gm/50 Ml Syringe IV PUSH PRN PRN Hypoglycemia Protocol Glucose 15 gm 01/16/25 00:41 Glucose Oral Gel 15 Gm Of Glucse In 37.5 Gm Tube PO PRN PRN Hypoglycemia Protocol Amiodarone HCl/Dextrose 360 mg in 200 mls @ 16.667 mls/hr 01/16/25 06:00 01/17/25 06:07 Nexterone 360 Mg/D5w 200 Ml IV CONT 0.5 mg/min .Q12H DIMA 16.67 mls/hr 0.5 MG/MIN Infusion Dextrose 1,000 mls @ 100 mls/hr 01/16/25 00:41 Dextrose 5% 1,000 Ml IVPB PRN PRN Hypoglycemia Protocol Insulin Aspart 2 - 5 units 01/16/25 08:00 01/16/25 16:04 Insulin Aspart (*Bkc) 100 Units/Ml SUB-Q Not Given TIDWM DIMA Protocol Insulin Aspart 1 - 2 units 01/16/25 21:00 01/16/25 22:03 Insulin Aspart (*Bkc) 100 Units/Ml SUB-Q Not Given HS DIMA Protocol Metoprolol Tartrate 12.5 mg 01/16/25 09:00 01/16/25 20:24 Metoprolol Tartrate 12.5 Mg Tablet PO 12.5 mg Q12HR DIMA Administration Perflutren Lipid Microsphere 0 ml 01/16/25 08:47 Perflutren Lipid Microspheres 1.5 Ml Vial Diluted To 10 Ml Total Volume IV PUSH 01/19/25 08:48 ONCE PRN adequate visualization Protocol Potassium Chloride 40 meq 01/16/25 11:15 01/16/25 11:49 Potassium Chloride 20 Meq Packet (For Liquid) PO 40 meq DAILY DIMA Administration Radiology Results: ITS Impressions Humerus X-Ray 01/15/25 19:17 Impression: No acute fracture or malalignment. Shoulder X-Ray 01/15/25 19:17 Impression: No acute fracture or malalignment. Chest X-Ray 01/16/25 06:09 IMPRESSION: 1. No acute cardiopulmonary findings. Head CT 01/16/25 09:06 IMPRESSION: 1. Multiple old infarcts in the brain. 2. Worsened extensive nonspecific cerebral white matter disease, which likely represents chronic small vessel ischemic disease. Cervical Spine CT 01/16/25 09:36 IMPRESSION: 1. No fracture. 2. Mild cervical spondylosis. Labs Labs: Laboratory Results - last 24 hr 01/16/25 01/16/25 01/16/25 03:19 06:45 11:27 POC Capillary Glucose 100 106 H TSH (Reflex) 3.510 01/16/25 01/16/25 15:54 19:50 POC Capillary Glucose 121 H 117 H TSH (Reflex) Quality VTE Prophylaxis VTE prophylaxis: pharmacologic ordered
[2025-01-17] MEDS: METOPROLOL TARTRATE 12.5 MG TABLET PO ×2 (08:02→20:26)
[2025-01-17] MEDS: APIXABAN 5 MG TABLET PO ×2 (08:02→20:27)
[2025-01-17] MEDS: ATORVASTATIN 40 MG TABLET PO (08:02)
[2025-01-17] MEDS: POTASSIUM CHLORIDE 20 MEQ PACKET (FOR LIQUID) 40 MEQ PO (08:02)
[2025-01-17 08:26] LABS: Hematocrit 37.8 % (37.0-47.0); Hemoglobin 11.6 g/dL (12.0-15.0); Mean Corpuscular HGB Conc 30.7 g/dl (32-36); Mean Corpuscular Hemoglobin 25.7 pg (26-34); Mean Corpuscular Volume 83.8 fl (80-100); Platelet Count Result 284 k/mm3 (150-375); Red Blood Count 4.51 M/mm3 (4.2-5.4); White Blood Count 10.5 K/mm3 (4.5-10.0)
[2025-01-17] MEDS: ACETAMINOPHEN 325 MG TABLET 650 MG PO ×2 (08:36→20:27)
[2025-01-17 08:55] LABS: Alanine Aminotransferase 30 U/L (6-35); Albumin Level 3.7 g/dL (3.5-5.1); Alkaline Phosphatase 92 U/L (38-126); Anion Gap 7 mmol/L (4-12); Aspartate Amino Transferase 32 U/L (14-36); Bilirubin,Total 0.3 mg/dL (0.2-1.3); Blood Urea Nitrogen 28 mg/dL (7-17); Calcium 9.2 mg/dL (8.4-10.2); Carbon Dioxide 27 mmol/L (22-30); Chloride 106 mmol/L (98-107); Estimated Glomerular Filt Rate 43; Glucose 106 mg/dL (65-110); Potassium 3.6 mmol/L (3.4-5.0); Sodium 140 mmol/L (137-145); Total Protein 7.4 g/dL (6.3-8.2)
--- NOTE | 2025-01-17 09:10 | PM.PNCARD ---
Progress Note: A&P Assessment and Plan (1) Atrial fibrillation with RVR: Code(s): I48.91 - Unspecified atrial fibrillation Status: Acute Assessment and Plan: 74-year-old female with hypertension, AFib on anticoagulation with apixaban, CKD, history of ?CVA. Patient admitted to the hospital after she reportedly had a fall. Patient is not a great historian. EKG at presentation showed AFib with RVR. Currently, heart rate is in 100s. She was treated with IV metoprolol, and is currently on IV amiodarone. Converted to sinus rhythm -As she is in sinus rhythm now, will discontinue IV amiodarone and shift to p.o. amiodarone 200mg daily for maintenance. -anticoagulation with apixaban. Patient presented with fall. Recommend PT OT evaluation to check gait stability. Her candidacy for percutaneous left atrial appendage closure can be determined as an outpatient based on fall risk or other barriers/contraindications for chronic anticoagulation. -TSH WNL -echo pending -Will arrange for outpatient follow up in our office -Cardiology will sign off please call with questions. (2) Acute UTI: Code(s): N39.0 - Urinary tract infection, site not specified Status: Acute Assessment and Plan: Appropriate antibiotics and management as per primary team Subjective Date/time seen: 01/17/25 09:10 Interval history: Cardiology follow up visit Date of service 01/17/2025: Feeling okay this morning. Complaining of ongoing left shoulder pain and requesting pain medication. She converted to sinus rhythm and remains in sinus rhythm now. No shortness of breath, palpitations, chest pain. Review of Systems Review of Systems: As per HPI, information gathered from the patient and from review of the chart. Patient is a poor historian and unable to gather all detailed medical information. Exam Narrative: PHYSICAL EXAMINATION: GENERAL: Alert, no acute distress MENTAL STATUS: Anxious EYES: Extraocular movements intact, no pallor EARS: External ears appear normal, hearing grossly normal NOSE: Normal and patent, no discharge MOUTH: Mucous membranes moist, tongue normal NECK: Supple, no JVD CHEST: Good respiratory effort, clear to auscultation HEART: Regular rate, regular rhythm. No murmur. ABDOMEN: Soft, nontender NEUROLOGICAL: Alert, normal speech MUSCULOSKELETAL: no amputation EXTREMITIES: And deformity; no edema SKIN: no rash on the exposed area, no cyanosis PSYCHIATRIC: Normal affect Objective Data Vital Signs Vital Signs: Vital Signs - 24 hr 01/16/25 09:29 01/16/25 10:00 01/16/25 10:00 Temperature Pulse Rate 99 102 H 102 H Respiratory Rate Blood Pressure 97/60 L Pulse Oximetry Oxygen Delivery 01/16/25 11:56 01/16/25 12:00 01/16/25 12:00 Temperature 36.3 C L Pulse Rate 104 H 104 H 99 Respiratory Rate 18 Blood Pressure 93/64 L 93/64 L Pulse Oximetry 100 Oxygen Delivery 01/16/25 12:00 01/16/25 13:49 01/16/25 14:00 Temperature 36.7 C Pulse Rate 98 96 Respiratory Rate 18 Blood Pressure 86/55 L Pulse Oximetry 99 Oxygen Delivery Room Air 01/16/25 14:00 01/16/25 16:00 01/16/25 16:00 Temperature 36.7 C Pulse Rate 96 107 H 98 Respiratory Rate 18 Blood Pressure 86/55 L 102/61 102/61 Pulse Oximetry 99 Oxygen Delivery 01/16/25 16:00 01/16/25 16:00 01/16/25 18:00 Temperature Pulse Rate 105 H 102 H Respiratory Rate Blood Pressure 103/73 Pulse Oximetry Oxygen Delivery Room Air 01/16/25 18:00 01/16/25 18:00 01/16/25 20:00 Temperature 36.7 C 36.8 C Pulse Rate 102 H 73 76 Respiratory Rate 18 18 Blood Pressure 103/73 109/67 Pulse Oximetry 98 91 Oxygen Delivery 01/16/25 20:00 01/16/25 20:00 01/16/25 20:11 Temperature Pulse Rate 78 75 Respiratory Rate Blood Pressure Pulse Oximetry Oxygen Delivery Room Air 01/16/25 20:21 01/16/25 20:22 01/16/25 20:24 Temperature Pulse Rate 75 75 75 Respiratory Rate Blood Pressure 109/67 Pulse Oximetry Oxygen Delivery 01/16/25 22:19 01/16/25 22:32 01/17/25 00:00 Temperature 36.8 C Pulse Rate 76 76 72 Respiratory Rate 16 Blood Pressure 105/73 114/65 Pulse Oximetry 98 Oxygen Delivery 01/17/25 00:00 01/17/25 00:00 01/17/25 00:00 Temperature Pulse Rate 72 80 Respiratory Rate Blood Pressure 114/65 Pulse Oximetry Oxygen Delivery Room Air 01/17/25 02:00 01/17/25 02:03 01/17/25 04:00 Temperature Pulse Rate 78 74 Respiratory Rate Blood Pressure 133/84 Pulse Oximetry Oxygen Delivery Room Air 01/17/25 04:00 01/17/25 04:00 01/17/25 04:30 Temperature 36.8 C Pulse Rate 75 73 75 Respiratory Rate 16 Blood Pressure 115/65 115/65 Pulse Oximetry 99 Oxygen Delivery 01/17/25 06:00 01/17/25 06:07 01/17/25 07:59 Temperature Pulse Rate 71 74 77 Respiratory Rate Blood Pressure 98/67 L 113/63 Pulse Oximetry Oxygen Delivery 01/17/25 07:59 01/17/25 08:00 01/17/25 08:02 Temperature 36.8 C Pulse Rate 77 74 77 Respiratory Rate 16 Blood Pressure 113/63 113/63 Pulse Oximetry 100 Oxygen Delivery Intake/Output Intake/Output: Intake & Output 01/14/25 01/15/25 01/16/25 01/17/25 23:59 23:59 23:59 23:59 Intake Total 1650 1191.5 517.4 Output Total 770 350 Balance 1650 421.5 167.4 Meds/Results Medications: Active Medications Generic Name Dose Route Start Last Admin Trade Name Freq PRN Reason Stop Dose Admin Acetaminophen 650 mg 01/16/25 04:22 01/17/25 08:36 Acetaminophen 325 Mg Tablet PO 650 mg Q6H PRN Administration Pain Rated 5 or Less Apixaban 5 mg 01/16/25 09:00 01/17/25 08:02 Apixaban 5 Mg Tablet PO 5 mg Q12HR DIMA Administration Atorvastatin Calcium 40 mg 01/16/25 09:00 01/17/25 08:02 Atorvastatin 40 Mg Tablet PO 40 mg DAILY DIMA Administration Dextrose 12.5 gm 01/16/25 00:41 Dextrose 50% 25 Gm/50 Ml Syringe IV PUSH PRN PRN Hypoglycemia Protocol Glucose 15 gm 01/16/25 00:41 Glucose Oral Gel 15 Gm Of Glucse In 37.5 Gm Tube PO PRN PRN Hypoglycemia Protocol Amiodarone HCl/Dextrose 360 mg in 200 mls @ 16.667 mls/hr 01/16/25 06:00 01/17/25 07:59 Nexterone 360 Mg/D5w 200 Ml IV CONT 0.5 mg/min .Q12H DIMA 16.67 mls/hr 0.5 MG/MIN Administration Dextrose 1,000 mls @ 100 mls/hr 01/16/25 00:41 Dextrose 5% 1,000 Ml IVPB PRN PRN Hypoglycemia Protocol Insulin Aspart 2 - 5 units 01/16/25 08:00 01/17/25 08:10 Insulin Aspart (*Bkc) 100 Units/Ml SUB-Q Not Given TIDWM DIMA Protocol Insulin Aspart 1 - 2 units 01/16/25 21:00 01/16/25 22:03 Insulin Aspart (*Bkc) 100 Units/Ml SUB-Q Not Given HS DIMA Protocol Metoprolol Tartrate 12.5 mg 01/16/25 09:00 01/17/25 08:02 Metoprolol Tartrate 12.5 Mg Tablet PO 12.5 mg Q12HR DIMA Administration Perflutren Lipid Microsphere 0 ml 01/16/25 08:47 Perflutren Lipid Microspheres 1.5 Ml Vial Diluted To 10 Ml Total Volume IV PUSH 01/19/25 08:48 ONCE PRN adequate visualization Protocol Potassium Chloride 40 meq 01/16/25 11:15 01/17/25 08:02 Potassium Chloride 20 Meq Packet (For Liquid) PO 40 meq DAILY DIMA Administration Radiology Results: ITS Impressions Humerus X-Ray 01/15/25 19:17 Impression: No acute fracture or malalignment. Shoulder X-Ray 01/15/25 19:17 Impression: No acute fracture or malalignment. Chest X-Ray 01/16/25 06:09 IMPRESSION: 1. No acute cardiopulmonary findings. Head CT 01/16/25 09:06 IMPRESSION: 1. Multiple old infarcts in the brain. 2. Worsened extensive nonspecific cerebral white matter disease, which likely represents chronic small vessel ischemic disease. Cervical Spine CT 01/16/25 09:36 IMPRESSION: 1. No fracture. 2. Mild cervical spondylosis. Labs Labs: Laboratory Results - last 24 hr 01/16/25 01/16/25 01/16/25 03:19 11:27 15:54 WBC RBC Hgb Hct MCV MCH MCHC RDW Plt Count MPV Sodium Potassium Chloride Carbon Dioxide Anion Gap BUN Creatinine Estim Creat Clear Calc Estimated GFR Glucose POC Capillary Glucose 106 H 121 H Calcium Total Bilirubin AST ALT Alkaline Phosphatase Total Protein Albumin TSH (Reflex) 3.510 01/16/25 01/17/25 01/17/25 19:50 07:16 08:18 WBC 10.5 H RBC 4.51 Hgb 11.6 L Hct 37.8 MCV 83.8 MCH 25.7 L MCHC 30.7 L RDW 18.6 H Plt Count 284 MPV 10.3 Sodium 140 Potassium 3.6 Chloride 106 Carbon Dioxide 27 Anion Gap 7 BUN 28 H D Creatinine 1.23 H Estim Creat Clear Calc Not Reportable Estimated GFR 43 L Glucose 106 POC Capillary Glucose 117 H 89 Calcium 9.2 Total Bilirubin 0.3 AST 32 ALT 30 Alkaline Phosphatase 92 Total Protein 7.4 Albumin 3.7 TSH (Reflex) Quality VTE Prophylaxis VTE prophylaxis: pharmacologic ordered
[2025-01-17] MEDS: AMIODARONE HCL 200 MG TABLET PO (09:56)
[2025-01-17] MEDS: cefTRIAXone 1 GM in SODIUM CHLORIDE 0.9% IV 50 ML 100 ML IVPB (13:41)
[2025-01-17] MEDS: LIDOCAINE 5% PATCH 1 PATCH TRANSDERM (13:41)
[2025-01-17] MEDS: PERFLUTREN LIPID MICROSPHERES 1.5 ML VIAL DILUTED TO 10 ML TOTAL VOLUME IV PUSH (14:00)
--- NOTE | 2025-01-17 14:34 | IVDEFINITY ---
Prior to administration of IV Definity the patient was educated on the risks and benefits of the imaging enhancing agent including potential adverse side effects. The patient verbalized understanding. Allergies were verified. No exclusion criteria were identified and at least one of the following inclusion criteria were met: 1) physician request, 2) patient technically difficult to image (per the [place] [employer] guidelines of two or more segments not discernable within the apical view), or 3) questionable left ventricular function. ?
[2025-01-18] VITALS (14 sets, daily range): BP systolic 103–121; BP diastolic 57–73; PULSE 70–87; RESP 14–20; TEMP 35.8–36.8; O2SAT 92–100
[2025-01-18 04:41] LABS: Hematocrit 35.0 % (37.0-47.0); Hemoglobin 10.7 g/dL (12.0-15.0); Mean Corpuscular HGB Conc 30.6 g/dl (32-36); Mean Corpuscular Hemoglobin 25.5 pg (26-34); Mean Corpuscular Volume 83.5 fl (80-100); Platelet Count Result 285 k/mm3 (150-375); Red Blood Count 4.19 M/mm3 (4.2-5.4); White Blood Count 9.4 K/mm3 (4.5-10.0)
[2025-01-18 05:06] LABS: Alanine Aminotransferase 23 U/L (6-35); Albumin Level 3.3 g/dL (3.5-5.1); Alkaline Phosphatase 85 U/L (38-126); Anion Gap 5 mmol/L (4-12); Aspartate Amino Transferase 28 U/L (14-36); Bilirubin,Total 0.5 mg/dL (0.2-1.3); Blood Urea Nitrogen 23 mg/dL (7-17); Calcium 8.6 mg/dL (8.4-10.2); Carbon Dioxide 26 mmol/L (22-30); Chloride 107 mmol/L (98-107); Estimated Glomerular Filt Rate 51; Glucose 83 mg/dL (65-110); Potassium 3.2 mmol/L (3.4-5.0); Sodium 138 mmol/L (137-145); Total Protein 6.7 g/dL (6.3-8.2)
--- NOTE | 2025-01-18 07:27 | PM.IMPN ---
Progress Note: A&P Assessment and Plan (1) Fall: Code(s): W19.XXXA - Unspecified fall, initial encounter Status: Acute Assessment and Plan: Reported mechanical fall at assisted living, denies head strike and loc Denies lightheadedness and dizziness prior to fall Head CT: Multiple old infarcts in the brain and worsened extensive nonspecific cerebral white matter disease which likely represents chronic small vessel ischemic disease C spine CT: no fracture of mild cervical spondylosis Chest XR, humerus, shoulder, and pelvis xr unremarkable PT/OT recommending HH Left arm pain significantly improved. Increased ROM. Continue tylenol and started on lidocaine patch. (2) Atrial fibrillation with RVR: Code(s): I48.91 - Unspecified atrial fibrillation Status: Acute Assessment and Plan: Patient was initially treated with IV metoprolol and was transitioned to IV amiodarone on admission - EKG on admission with Afib RVR HR 123 - Medication: Eliquis 5 mg bid, metoprolol 12.5 mg BID and amiodarone 200 mg daily - TSH ordered to rule out metabolic cause for tachyarrhythmia WNL - Echo: LVEF 65-70% with abnormal diastolic function - Telemetry - Cardiology consulted continue po amiodarone, metoprolol and eliquis Her candidacy for percutaneous left atrial appendage closure can be determined as an outpatient Remains in sinus rhythm with stable HR. Denies chest pain and palpations. Continue medication as above. (3) Acute UTI: Code(s): N39.0 - Urinary tract infection, site not specified Status: Acute Assessment and Plan: - UA concerning for infection - UC obtained on 01/15: pending - Blood culture obtained on 01/15: pending - previous micro reviewed however dating back to 2021 klebsiella oxytoca with resistance to ampicillin, cefazolin, and macrobid - started on rocephin on 01/15 No longer endorsing burning sensation or dysuria. Urine culture still pending. Transition to oral antibiotics when sensitivities return. (4) CKD (chronic kidney disease): Code(s): N18.9 - Chronic kidney disease, unspecified Status: Acute Assessment and Plan: Chronic, unclear baseline kidney function however creatinine 1.2 in 2021. Follow serum creatinine trend status post fluid resuscitation. Check bladder scan for retention. (5) Hypertension: Code(s): I10 - Essential (primary) hypertension Status: Acute Assessment and Plan: Chronic, continue home medications Patient hypotension on admission likely related to afib RVR - metoprolol 12.5 mg BID - holding HCTZ 50 mg daily, resume as appropriate - blood pressures remain stable, continue to monitor Time Spent With Patient Time with patient: 25 - 35 minutes Subjective Date/time seen: 01/18/25 07:27 Interval history: 74-year-old female with past medical history of hypertension, AFib on anticoagulation with apixaban, and CKD presents to the hospital for a fall. Patient is pleasant sitting up comfortably in bed. No acute events overnight. She has no complaints at this time denying any chest pain, shortness breath, palpitations, nausea/vomiting, and abdominal pain. Review of Systems Review of Systems: All systems reviewed & are unremarkable except as noted in HPI and below (Subjective) Exam Narrative: AF HR 71 RR 14 SPO2 97 BP 103/64 General: female in no acute respiratory distress who is nontoxic appearing, sitting up in bed. HEENT: Normocephalic. Atraumatic. Extraocular movement intact. Sclera clear and anicteric. No facial asymmetry. Chest: Lungs are clear to auscultation bilaterally. No wheezes or crackles. CV: Heart was regular rate and rhythm. Tele reviewed, sinus rhythm. Abd: Abdomen was soft. Nontender. Nondistended. Positive bowel sounds. Ext: No clubbing, cyanosis, or edema. DP pulses bilaterally. Neuro: Patient is alert. Speech is clear. Objective Data Vital Signs Vital Signs: Vital Signs - 24 hr 01/17/25 07:59 01/17/25 07:59 01/17/25 08:00 Temperature 98.2 F Pulse Rate 77 77 74 Respiratory Rate 16 Blood Pressure 113/63 113/63 113/63 Pulse Oximetry 100 Oxygen Delivery 01/17/25 08:00 01/17/25 08:02 01/17/25 09:14 Temperature Pulse Rate 74 77 Respiratory Rate Blood Pressure Pulse Oximetry Oxygen Delivery Room Air 01/17/25 09:50 01/17/25 09:56 01/17/25 10:00 Temperature 96.5 F L Pulse Rate 78 78 78 Respiratory Rate 30 H Blood Pressure 113/68 113/68 Pulse Oximetry 97 Oxygen Delivery 01/17/25 10:00 01/17/25 12:00 01/17/25 12:00 Temperature 98.2 F Pulse Rate 78 74 77 Respiratory Rate 16 Blood Pressure 113/62 Pulse Oximetry 99 Oxygen Delivery 01/17/25 14:00 01/17/25 15:30 01/17/25 15:39 Temperature 97.3 F L Pulse Rate 75 76 Respiratory Rate 18 Blood Pressure 140/82 Pulse Oximetry 99 Oxygen Delivery Room Air 01/17/25 16:00 01/17/25 18:00 01/17/25 20:00 Temperature 98.3 F Pulse Rate 74 78 82 Respiratory Rate 14 Blood Pressure 137/71 Pulse Oximetry 97 Oxygen Delivery 01/17/25 20:00 01/17/25 20:26 01/17/25 22:30 Temperature Pulse Rate 79 80 76 Respiratory Rate Blood Pressure Pulse Oximetry Oxygen Delivery 01/18/25 00:00 01/18/25 00:00 01/18/25 01:59 Temperature 98.1 F Pulse Rate 76 75 75 Respiratory Rate 16 Blood Pressure 121/68 Pulse Oximetry 98 Oxygen Delivery 01/18/25 04:00 01/18/25 04:00 01/18/25 05:59 Temperature 98.3 F Pulse Rate 73 73 72 Respiratory Rate 16 Blood Pressure 116/57 L Pulse Oximetry 97 Oxygen Delivery Intake/Output Intake/Output: Intake & Output 01/15/25 01/16/25 01/17/25 01/18/25 23:59 23:59 23:59 23:59 Intake Total 1650 1191.5 1158.2 150 Output Total 770 850 800 Balance 1650 421.5 308.2 -650 Meds/Results Medications: Active Medications Generic Name Dose Route Start Last Admin Trade Name Freq PRN Reason Stop Dose Admin Acetaminophen 650 mg 01/16/25 04:22 01/17/25 20:27 Acetaminophen 325 Mg Tablet PO 650 mg Q6H PRN Administration Pain Rated 5 or Less Amiodarone HCl 200 mg 01/17/25 09:20 01/17/25 09:56 Amiodarone Hcl 200 Mg Tablet PO 200 mg DAILY@0800 DIMA Administration Apixaban 5 mg 01/16/25 09:00 01/17/25 20:27 Apixaban 5 Mg Tablet PO 5 mg Q12HR DIMA Administration Atorvastatin Calcium 40 mg 01/16/25 09:00 01/17/25 08:02 Atorvastatin 40 Mg Tablet PO 40 mg DAILY DIMA Administration Dextrose 12.5 gm 01/16/25 00:41 Dextrose 50% 25 Gm/50 Ml Syringe IV PUSH PRN PRN Hypoglycemia Protocol Glucose 15 gm 01/16/25 00:41 Glucose Oral Gel 15 Gm Of Glucse In 37.5 Gm Tube PO PRN PRN Hypoglycemia Protocol Dextrose 1,000 mls @ 100 mls/hr 01/16/25 00:41 Dextrose 5% 1,000 Ml IVPB PRN PRN Hypoglycemia Protocol Ceftriaxone Sodium 1 gm/ 50 mls @ 100 mls/hr 01/17/25 14:00 01/17/25 14:11 Sodium Chloride IVPB Infused Q24H DIMA Infusion Insulin Aspart 2 - 5 units 01/16/25 08:00 01/17/25 17:07 Insulin Aspart (*Bkc) 100 Units/Ml SUB-Q Not Given TIDWM DIMA Protocol Insulin Aspart 1 - 2 units 01/16/25 21:00 01/17/25 21:52 Insulin Aspart (*Bkc) 100 Units/Ml SUB-Q Not Given HS DIMA Protocol Lidocaine 1 patch 01/17/25 11:45 01/17/25 13:41 Lidocaine 5% Patch TRANSDERM 1 patch DAILY DIMA Administration Metoprolol Tartrate 12.5 mg 01/16/25 09:00 01/17/25 20:26 Metoprolol Tartrate 12.5 Mg Tablet PO 12.5 mg Q12HR DIMA Administration Potassium Chloride 40 meq 01/16/25 11:15 01/17/25 08:02 Potassium Chloride 20 Meq Packet (For Liquid) PO 40 meq DAILY DIMA Administration Radiology Results: ITS Impressions Humerus X-Ray 01/15/25 19:17 Impression: No acute fracture or malalignment. Shoulder X-Ray 01/15/25 19:17 Impression: No acute fracture or malalignment. Chest X-Ray 01/16/25 06:09 IMPRESSION: 1. No acute cardiopulmonary findings. Head CT 01/16/25 09:06 IMPRESSION: 1. Multiple old infarcts in the brain. 2. Worsened extensive nonspecific cerebral white matter disease, which likely represents chronic small vessel ischemic disease. Cervical Spine CT 01/16/25 09:36 IMPRESSION: 1. No fracture. 2. Mild cervical spondylosis. Labs Labs: Laboratory Results - last 24 hr 01/17/25 01/17/25 01/17/25 07:16 08:18 10:53 WBC 10.5 H RBC 4.51 Hgb 11.6 L Hct 37.8 MCV 83.8 MCH 25.7 L MCHC 30.7 L RDW 18.6 H Plt Count 284 MPV 10.3 Sodium 140 Potassium 3.6 Chloride 106 Carbon Dioxide 27 Anion Gap 7 BUN 28 H D Creatinine 1.23 H Estim Creat Clear Calc Not Reportable Estimated GFR 43 L Glucose 106 POC Capillary Glucose 89 97 Calcium 9.2 Total Bilirubin 0.3 AST 32 ALT 30 Alkaline Phosphatase 92 Total Protein 7.4 Albumin 3.7 01/17/25 01/17/25 01/18/25 14:53 19:44 04:23 WBC 9.4 RBC 4.19 L Hgb 10.7 L Hct 35.0 L MCV 83.5 MCH 25.5 L MCHC 30.6 L RDW 18.5 H Plt Count 285 MPV 10.4 Sodium 138 Potassium 3.2 L Chloride 107 Carbon Dioxide 26 Anion Gap 5 BUN 23 H Creatinine 1.06 H Estim Creat Clear Calc Not Reportable Estimated GFR 51 L Glucose 83 POC Capillary Glucose 101 118 H Calcium 8.6 Total Bilirubin 0.5 AST 28 ALT 23 Alkaline Phosphatase 85 Total Protein 6.7 Albumin 3.3 L Quality VTE Prophylaxis VTE prophylaxis: pharmacologic ordered
[2025-01-18] MEDS: POTASSIUM CHLORIDE 20 MEQ PACKET (FOR LIQUID) 40 MEQ PO (09:08)
[2025-01-18] MEDS: LIDOCAINE 5% PATCH 1 PATCH TRANSDERM (09:09)
[2025-01-18] MEDS: APIXABAN 5 MG TABLET PO ×2 (09:09→20:43)
[2025-01-18] MEDS: ATORVASTATIN 40 MG TABLET PO (09:09)
[2025-01-18] MEDS: AMIODARONE HCL 200 MG TABLET PO (09:09)
[2025-01-18] MEDS: METOPROLOL TARTRATE 12.5 MG TABLET PO ×2 (09:10→20:43)
--- NOTE | 2025-01-18 12:17 | PC.NURSE ---
This patient, Juana Liao, was transferred to [[id number] ] on 01/18/25 at 1217. Personal belongings sent with patient. Report given to [BRYON Thompson ]. Appropriate documentation sent with patient.
--- NOTE | 2025-01-18 12:33 | PC.NURSE ---
This patient, Juana Liao, was received from [[facility]] on 01/18/25 at 1220 Patient/family oriented to unit policies and routines. REPORT FROM [facility]
[2025-01-18] MEDS: cefTRIAXone 1 GM in SODIUM CHLORIDE 0.9% IV 50 ML 100 ML IVPB (13:21)
--- NOTE | 2025-01-18 18:43 | PC.NURSE ---
On 01/18/25, the student, [ Haseeb Ferguson], provided care and completed [facility] documentation on this patient. I have reviewed the student's documentation and agree with the findings.
[2025-01-18] MEDS: ACETAMINOPHEN 325 MG TABLET 650 MG PO (22:04)
[2025-01-19] VITALS (7 sets, daily range): BP systolic 108–127; BP diastolic 60–76; PULSE 71–77; RESP 14; TEMP 36.4–36.6; O2SAT 96–99
[2025-01-19 07:01] LABS: Hematocrit 37.5 % (37.0-47.0); Hemoglobin 11.4 g/dL (12.0-15.0); Mean Corpuscular HGB Conc 30.4 g/dl (32-36); Mean Corpuscular Hemoglobin 26.0 pg (26-34); Mean Corpuscular Volume 85.4 fl (80-100); Platelet Count Result 309 k/mm3 (150-375); Red Blood Count 4.39 M/mm3 (4.2-5.4); White Blood Count 11.2 K/mm3 (4.5-10.0)
[2025-01-19 07:34] LABS: Alanine Aminotransferase 24 U/L (6-35); Albumin Level 3.5 g/dL (3.5-5.1); Alkaline Phosphatase 90 U/L (38-126); Anion Gap 7 mmol/L (4-12); Aspartate Amino Transferase 30 U/L (14-36); Bilirubin,Total 0.5 mg/dL (0.2-1.3); Blood Urea Nitrogen 19 mg/dL (7-17); Calcium 9.2 mg/dL (8.4-10.2); Carbon Dioxide 26 mmol/L (22-30); Chloride 107 mmol/L (98-107); Estimated Glomerular Filt Rate 53; Glucose 83 mg/dL (65-110); Potassium 4.1 mmol/L (3.4-5.0); Sodium 140 mmol/L (137-145); Total Protein 7.1 g/dL (6.3-8.2)
[2025-01-19] MEDS: LIDOCAINE 5% PATCH 1 PATCH TRANSDERM (08:07)
[2025-01-19] MEDS: POTASSIUM CHLORIDE 20 MEQ PACKET (FOR LIQUID) 40 MEQ PO (08:09)
[2025-01-19] MEDS: AMIODARONE HCL 200 MG TABLET PO (08:11)
[2025-01-19] MEDS: METOPROLOL TARTRATE 12.5 MG TABLET PO (08:11)
[2025-01-19] MEDS: ATORVASTATIN 40 MG TABLET PO (08:11)
[2025-01-19] MEDS: APIXABAN 5 MG TABLET PO (08:11)
[2025-01-19] MEDS: ACETAMINOPHEN 325 MG TABLET 650 MG PO (08:13)
[2025-01-19] MEDS: cefTRIAXone 1 GM in SODIUM CHLORIDE 0.9% IV 50 ML 100 ML IVPB (13:28)
--- NOTE | 2025-01-19 14:21 | PM.DS ---
DS: Admitting Diagnosis Discharge Date 01/19 Admitting Diagnosis fall DS: Discharge Diagnosis Discharge Diagnosis (1) Fall: Code(s): W19.XXXA - Unspecified fall, initial encounter Status: Acute (2) Atrial fibrillation with RVR: Code(s): I48.91 - Unspecified atrial fibrillation Status: Acute (3) Acute UTI: Code(s): N39.0 - Urinary tract infection, site not specified Status: Acute (4) CKD (chronic kidney disease): Code(s): N18.9 - Chronic kidney disease, unspecified Status: Acute (5) Hypertension: Code(s): I10 - Essential (primary) hypertension Status: Acute DS: Summary Hospital Course Hospital Course: 74-year-old female with past medical history of hypertension, AFib on anticoagulation with apixaban, and CKD presents to the hospital for a fall. Several issues were addressed: # Fall: Reported mechanical fall at assisted living, denies head strike and loc Denies lightheadedness and dizziness prior to fall Head CT: Multiple old infarcts in the brain and worsened extensive nonspecific cerebral white matter disease which likely represents chronic small vessel ischemic disease C spine CT: no fracture of mild cervical spondylosis Chest XR, humerus, shoulder, and pelvis xr unremarkable PT/OT recommending HH Left arm pain significantly improved. Increased ROM. Continue tylenol and started on lidocaine patch. #Atrial fibrillation with RVR: Patient was initially treated with IV metoprolol and was transitioned to IV amiodarone on admission - EKG on admission with Afib RVR HR 123 - Medication: Eliquis 5 mg bid, metoprolol 12.5 mg BID and amiodarone 200 mg daily - TSH ordered to rule out metabolic cause for tachyarrhythmia WNL - Echo: LVEF 65-70% with abnormal diastolic function - Telemetry - Cardiology consulted continue po amiodarone, metoprolol and eliquis Her candidacy for percutaneous left atrial appendage closure can be determined as an outpatient Remains in sinus rhythm with stable HR. Denies chest pain and palpations. Continue medication as above. # Acute UTI: - UA concerning for infection - UC obtained on 01/15: pending - Blood culture obtained on 01/15: pending - previous micro reviewed however dating back to 2021 klebsiella oxytoca with resistance to ampicillin, cefazolin, and macrobid - started on rocephin on 01/15 No longer endorsing burning sensation or dysuria. Urine culture still pending. Transition to oral antibiotics when sensitivities return. downgrade to Augmentin- still have total of 8 doses # CKD (chronic kidney disease): Chronic, unclear baseline kidney function however creatinine 1.2 in 2021. Follow serum creatinine trend status post fluid resuscitation. Check bladder scan for retention. # Hypertension: Chronic, continue home medications Patient hypotension on admission likely related to afib RVR - metoprolol 12.5 mg BID - holding HCTZ 50 mg daily, resume as appropriate - blood pressures remain stable, continue to monitor Status at Discharge Functional status at discharge: independent ambulation Overall status at discharge: patient is progressing back to baseline Time Spent with Patient Time attestation: Total time spent providing and/or coordinating discharge services: Time spent: Greater than 30 minutes Exam Narrative: General: female in no acute respiratory distress who is nontoxic appearing, sitting up in bed. HEENT: Normocephalic. Atraumatic. Extraocular movement intact. Sclera clear and anicteric. No facial asymmetry. Chest: Lungs are clear to auscultation bilaterally. No wheezes or crackles. CV: Heart was regular rate and rhythm. Tele reviewed, sinus rhythm. Abd: Abdomen was soft. Nontender. Nondistended. Positive bowel sounds. Ext: No clubbing, cyanosis, or edema. DP pulses bilaterally. Neuro: Patient is alert. Speech is clear. Const: General: comfortable and no acute distress Other: A&O x3 HENMT: Mouth: Yes moist mucous membranes Eyes: Pupils: Equal, round and reactive pupils present Neck: Neck: supple Resp: Effort & Inspection: normal respiratory effort Auscultation: clear to auscultation bilaterally Cardio: Rate: tachycardic Rhythm: abnormal rhythm : General: Yes bladder normal to palpation Bimanual exam- vagina & uterus: bladder normal to palpation Skin: General skin exam: normal color Neuro: Cranial nerves: Yes Equal, round and reactive pupils present Motor exam (neuro): 5/5 motor strength present throughout Extrem: General: no edema DS: Data Data Completed and Pending Labs on day of discharge: Labs from last 24 hours 01/19/25 01/19/25 01/19/25 11:42 07:35 06:23 WBC 11.2 H RBC 4.39 Hgb 11.4 L Hct 37.5 MCV 85.4 MCH 26.0 MCHC 30.4 L RDW 18.5 H Plt Count 309 MPV 10.7 H Sodium 140 Potassium 4.1 Chloride 107 Carbon Dioxide 26 Anion Gap 7 BUN 19 H Creatinine 1.01 H Estim Creat Clear Calc Not Reportable Estimated GFR 53 L Glucose 83 POC Capillary Glucose 92 83 Calcium 9.2 Total Bilirubin 0.5 AST 30 ALT 24 Alkaline Phosphatase 90 Total Protein 7.1 Albumin 3.5 01/18/25 01/18/25 01/18/25 20:10 17:09 16:35 WBC RBC Hgb Hct MCV MCH MCHC RDW Plt Count MPV Sodium Potassium Chloride Carbon Dioxide Anion Gap BUN Creatinine Estim Creat Clear Calc Estimated GFR Glucose POC Capillary Glucose 96 102 41 L* Calcium Total Bilirubin AST ALT Alkaline Phosphatase Total Protein Albumin Preliminary micro results at discharge 01/15/25 22:51 Blood Culture - Preliminary Blood 01/16/25 03:19 Blood Culture - Preliminary Blood 01/15/25 20:59 - Preliminary Urine Clean Catch Escherichia coli. Discharge Plan Discharge Attending physician on discharge: Elmer Jim Consulting providers: Kenzie Branch; Marisa Lopes Discharging Clinician: Shanta Patel Patient Disposition: [facility] Activity: july shower Diet: heart healthy Discharge Instructions: You have total 8 doses left to complete antibitics for UTI. Please f/u with pcp within1 -2 weeks after discharge. Cardiology started you on amiodarone- please take as prescribed. Patient Instructions: Antibiotic Form, Apixaban (By mouth), How to Stop Smoking (GEN) Patient Language: Tongan Stand Alone Forms: General Discharge Information Follow-up/Referrals: Mirna Villalobos [facility] [Advanced Practice Nurse, Cardiology] - Call for Appointment Awilda,MICKIE Saha [Primary Care Provider] - 2 Weeks Discharge Medications: New amiodarone [Pacerone] 200 mg Tablet 200 mg PO DAILY@0800 Qty: 30 0RF lidocaine [Lidoderm] 5 % Adhesive Patch,Medicated 1 patch transdermal DAILY Qty: 15 0RF amoxicillin-pot clavulanate 875-125 mg tablet 1 tablet PO Q12H Qty: 8 0RF Continued ketoconazole 2 % cream 1 applic topical BID Qty: 60 0RF Rx Instructions: apply twice daily to affected areas for 2 weeks atorvastatin 40 mg tablet 40 mg PO DAILY ibuprofen 600 mg tablet 600 mg PO Q8H PRN (Reason: fever or pain) citalopram 40 mg tablet 40 mg PO DAILY amitriptyline 10 mg tablet 25 mg PO BID metoprolol tartrate 50 mg tablet 50 mg PO DAILY hydrochlorothiazide 25 mg tablet 50 mg PO DAILY duloxetine 20 mg capsule,delayed release(DR/EC) 20 mg PO DAILY Eliquis 5 mg tablet 5 mg PO DAILY Jardiance 25 mg tablet 25 mg PO DAILY Date of admission: 01/16/25 10:09 Primary Care Provider: AwildaMaria A Admitting Provider: Vanessa Berrios Attending physician on admission: Vanessa Berrios Condition: Stable Quality VTE Prophylaxis VTE prophylaxis: pharmacologic ordered Hospitalist MIPS Heart Failure (Exclusion) Patient has history of Heart Transplant or Left Ventricular Assistive Device?: No IF YES, STOP HERE Heart Failure (Qualifier) Patient has current or prior documentation of LVEF less than or equal to 40%, or mod/servere depressed LVSF?: No IF NO, STOP HERE
== END 2025-01-19 16:04 | DRG 309 ==
LOC: ANHED 01-16 00:27 → ANHIMU 01-16 00:32 → ANH3MEDSUR 01-19 07:42 → ANHIMU 01-20 14:37
PROVIDERS: Internal Medicine Cardiovascular Disease; Student in an Organized Health Care Education/Training Program; Admitting Provider General Practice; Emergency Provider Physician Assistant; PCP Registered Nurse; Visit Provider Nurse Practitioner
DX: I48.91 Unspecified atrial fibrillation (principal); N39.0 Urinary tract infection, site not specified; M25.512 Pain in left shoulder; N18.9 Chronic kidney disease, unspecified; E11.22 Type 2 diabetes mellitus with diabetic chronic kidney disease; E78.00 Pure hypercholesterolemia, unspecified; I12.9 Hypertensive chronic kidney disease with stage 1 through stage 4 chronic kidney disease, or unspecified chronic kidney disease; E87.6 Hypokalemia; R60.0 Localized edema; F41.9 Anxiety disorder, unspecified; F32.A Depression, unspecified; F17.210 Nicotine dependence, cigarettes, uncomplicated; W01.0XXA Fall on same level from slipping, tripping and stumbling without subsequent striking against object, initial encounter; Z66 Do not resuscitate; Z79.01 Long term (current) use of anticoagulants; Z86.73 Personal history of transient ischemic attack (TIA), and cerebral infarction without residual deficits
CPT/HCPCS: 36415; 70450; 71046; 72125; 72170; 73030; 73060; 80048; 80053; 81001; 82948; 83735; 83880; 84443; 85025; 85027; 85380; 85610; 85730; 87040; 87086; 87186; 93005; 96361; 96365; 96375; 97110; 97116; 97161; 97165; 97530; 97535; 99285; A9270; C8929; G0378; J0283; J0616; J0696; J7040; Q9957